=== PATIENT | male | born 1975 | race Caucasian/White ===

== ENCOUNTER 2017-07-09 17:55 | Emergency (ER) | END 2017-07-09 20:26 | disposition home or self-care (01) ==

== ENCOUNTER 2018-01-03 23:15 | Emergency (ER) | END 2018-01-04 01:15 | disposition left against medical advice (07) ==

== ENCOUNTER 2018-01-11 21:01 | Emergency (ER) | END 2018-01-12 00:05 | disposition home or self-care (01) ==

== ENCOUNTER 2018-05-29 10:38 | Inpatient (IN) | payer MEDICARE, BC ==
[~2018-05-29] VITALS: Ht 177.8 cm; Wt 95.3 kg
[~2018-05-29 10:38] MED LIST: BENZ2TAB7 PO; ESOM40CA PO; HALO10TA PO; HYDR-762 PO; LORA-444 PO; METO-336 PO; ONDA4TAB35 PO
[2018-05-29 10:45] VITALS: Ht 177.8 cm; Wt 95.3 kg
[2018-05-29] MEDS ORDERED: SOD CHLORIDE 0.9% 1,000 ML IV STA (10:50)
[2018-05-29] MEDS ORDERED: FLUMAZENIL 0.5 MG INJ IV ONE ×2 (11:00→12:30)
[2018-05-29] MEDS ORDERED: METO-407 PO (12:23)
[2018-05-29] MEDS ORDERED: QUET300T2 PO (12:23)
[2018-05-29] MEDS ORDERED: IBUP-1545 PO (12:24)
[2018-05-29] MEDS ORDERED: ZOLP10TA5 PO (12:24)
[2018-05-29] MEDS ORDERED: CLON0.2T5 PO (12:25)
[2018-05-29] MEDS ORDERED: ESOM40CA PO (12:25)
[2018-05-29] MEDS ORDERED: LORA1TAB PO (12:25)
[2018-05-29] MEDS ORDERED: LIPA1CAP2 PO (12:26)
[2018-05-29 12:35] VITALS: RESP 13
--- NOTE | 2018-05-29 14:03 | ERD ---
ER Documentation Chief Complaint Chief Complaint ACCIDENTAL OVERDOSE HPI This is a 43-year-old male here for overdose. Patient is extremely groggy and is hard to get a good history out of him but he does mumble that he took Ativan and Seroquel. He does not know when he took it or how much he took. The patient's been here in the past for accidental overdose. It is unclear if he is trying to hurt himself or not. ROS All systems reviewed and are negative except as per history of present illness. Medications Home Meds Reported Medications Moedgt-Bnmqprqs-Xvsbtkx* (Inder BROWN* 6,000) 6,000 L-19,000-30,000 Unit Capsule.dr, 1 CAP PO WITH MEALS, CAP 05/29/18 Lorazepam* (Lorazepam*) 1 Mg Tablet, 2 MG PO DAILY PRN for ANXIETY, #30 TAB 05/29/18 Clonidine Hcl* (Clonidine Hcl*) 0.2 Mg Tablet, 0.2 MG PO QHS, TAB 05/29/18 Esomeprazole Mag Trihydrate (Nexium) 40 Mg Capsule.dr, 40 MG PO AC BREAKFAST, #30 CAP 05/29/18 Zolpidem Tartrate* (Zolpidem Tartrate*) 10 Mg Tablet, 10 MG PO QHS PRN for INSOMNIA, #30 TAB 05/29/18 Ibuprofen* (Ibuprofen*) 800 Mg Tab, 800 MG PO Q6H PRN for PAIN, TAB 05/29/18 Quetiapine Fumarate* (Seroquel*) 300 Mg Tablet, 300 MG PO BID, TAB 05/29/18 Metoprolol Tartrate* (Lopressor*) 100 Mg Tablet, 200 MG PO BID, #120 TAB 05/29/18 Discontinued Reported Medications Benztropine Mesylate* (Benztropine Mesylate*) 2 Mg Tablet, 2 MG PO QPM, TAB 02/09/15 Esomeprazole Mag Trihydrate (Nexium) 40 Mg Capsule.dr, 40 MG PO DAILY, CAP 02/09/15 Metoprolol Succinate* (Toprol XL*) 100 Mg Tab.sr.24h, 100 MG PO DAILY, TAB 02/09/15 Lorazepam* (Ativan*) 2 Mg Tablet, 2 MG PO HS PRN for INSOMNIA, TAB 07/11/14 Haloperidol* (Haloperidol*) 10 Mg Tablet, 10 MG PO QHS, TAB 06/01/14 Discontinued Scripts Hydrocodone Bit-Acetaminophen* (Ranier*) 10-325 Mg Tablet, 1 TAB PO Q6 PRN for PAIN, #7 TAB Prov:DAISY AZEVEDO MD 09/12/15 Ondansetron Hcl* (Zofran* ODT) 4 mg -ODT Tab.disper, 4 MG PO Q6 PRN for NAUSEA AND/OR VOMITING, #30 TAB Prov:DAISY AZEVEDO MD 02/09/15 Allergies Allergies: Coded Allergies: Sulfa (Sulfonamide Antibiotics) (Unverified Allergy, Unknown, 01/04/18) iodine (Unverified Allergy, Unknown, 01/04/18) PMhx/Soc History of Surgery: Yes (APPENDECTOMY, FOOT SURGERY) Anesthesia Reaction: No Hx Neurological Disorder: No Hx Respiratory Disorders: No Hx Cardiac Disorders: No Hx Psychiatric Problems: Yes (Psychosis;Suicide Attempt;Pervasive Development D/O) Hx Miscellaneous Medical Probl: Yes (ANXIETY , asperger's sx) Hx Alcohol Use: Yes Hx Substance Use: Yes (MARiJUANA) Hx Tobacco Use: No Smoking Status: Never smoker FmHx Family History: No coronary disease Physical Exam Vitals Vital Signs Date Temp Pulse Resp B/P (MAP) Pulse Ox O2 O2 Flow FiO2 Time Delivery Rate 05/29/18 68 13 103/84 100 Room Air 12:35 (90) 05/29/18 97.6 70 11 118/81 100 10:45 (93) Physical Exam Const: Well-developed, well-nourished Head: Atraumatic, normocephalic Eyes: Normal Conjunctiva, PERRLA, EOMI, normal sclera, no nystagmus ENT: Normal External Ears, Nose and Mouth, moist mucus membranes. Neck: Full range of motion. No meningismus, no lymphadenopathy. Resp: Clear to auscultation bilaterally, no wheezing, rhonchi, rales Cardio: Regular rate and rhythm, no murmurs, S1 S2 present Abd: Soft, non tender x 4, non distended. Normal bowel sounds, no guarding or rebound, no pulsitile abdominal masses or bruits Skin: No petechiae or rashes, no ecchymosis , no maculopapular rash Back: No midline or flank tenderness Ext: No cyanosis, or edema, FROM x 4, normal inspection, neurovascularly intact x 4 Neur: Groggy and minimally arousable to answer a few questions and falls back asleep. Psych: Unable to obtain] Result Diagram: 05/29/18 1135 05/29/18 0930 Results 24 hrs Laboratory Tests Test 05/29/18 09:30 05/29/18 11:35 05/29/18 13:05 Sodium Level 145 mmol/L Potassium Level 3.9 mmol/L Chloride Level 108 mmol/L Carbon Dioxide Level 30 mmol/L Anion Gap 7 Blood Urea Nitrogen 10 mg/dl Creatinine 0.73 mg/dl Est Glomerular Filtrat > 60 mL/min Rate mL/min Glucose Level 109 mg/dl Calcium Level 8.9 mg/dl Total Bilirubin 0.2 mg/dl Direct Bilirubin 0.00 mg/dl Indirect Bilirubin 0.2 mg/dl Aspartate Amino 20 IU/L Transf (AST/SGOT) Alanine 16 IU/L Aminotransferase (ALT/SGPT) Alkaline Phosphatase 93 IU/L Total Protein 6.4 g/dl Albumin 3.4 g/dl Globulin 3.00 g/dl Albumin/Globulin Ratio 1.13 Salicylates Level < 1.0 mg/dl Acetaminophen Level < 10.0 ug/ml Ethyl Alcohol Level < 10.0 mg/dl White Blood Count 3.1 10^3/ul Red Blood Count 4.50 10^6/ul Hemoglobin 13.0 g/dl Hematocrit 39.1 % Mean Corpuscular Volume 86.9 fl Mean Corpuscular Hemoglobin 28.9 pg Mean Corpuscular 33.2 g/dl Hemoglobin Concent Red Cell Distribution Width 12.5 % Platelet Count 280 10^3/UL Mean Platelet Volume 9.1 fl Immature Granulocytes % 0.300 % Neutrophils % 56.6 % Lymphocytes % 28.8 % Monocytes % 10.5 % Eosinophils % 3.2 % Basophils % 0.6 % Nucleated Red Blood Cells % 0.0 /100WBC Immature Granulocytes # 0.010 10^3/ul Neutrophils # 1.8 10^3/ul Lymphocytes # 0.9 10^3/ul Monocytes # 0.3 10^3/ul Eosinophils # 0.1 10^3/ul Basophils # 0.0 10^3/ul Nucleated Red Blood Cells # 0.0 10^3/ul Urine Opiates Screen Negative Urine Barbiturates Negative Urine Amphetamines Screen Negative Urine Benzodiazepines Screen Negative Urine Cocaine Screen Negative Urine Cannabinoids Negative Current Medications Medications Dose Sig/Umberto Start Time Status Last (Trade) Ordered Route PRN Stop Time Admin Dose Reason Admin Flumazenil 0.5 mg ONCE ONCE 05/29/18 DC 05/29/18 (Romazicon) IV 11:00 11:09 05/29/18 11:01 Sodium 1,000 ml @ Q1H STAT 05/29/18 DC 05/29/18 Chloride 1,000 mls/hr IV 10:50 11:09 05/29/18 11:49 Flumazenil 0.5 mg ONCE ONCE 05/29/18 DC 05/29/18 (Romazicon) IV 12:30 12:29 05/29/18 12:31 Procedures/MDM Ordering MD: JEREMY LEBRON DO Location: E/R Room/Bed: PROCEDURE: CT head CLINICAL INDICATION: Altered mental status TECHNIQUE: Contiguous 2.5 mm axial images were obtained from the vertex to the skull base. No intravenous contrast was administered. The calculated dose length product (DLP) = 634.23 mGy-cm. The CTDlvol = 30.77 mGy. One or more of the following dose reduction techniques were used: Automated exposure control, adjustment of the mA and or KV according to patient size, or use of iterative reconstruction technique. DICOM images are available. COMPARISON: 02/10/2018 FINDINGS: There is no evidence of acute intracranial hemorrhage or acute territorial infarct. No mass or mass effect is seen on this noncontrast study. The ventricles and cisterns are normal in size and configuration. The subramanian-white matter differentiation is within normal limits. The visualized paranasal sinuses are normally aerated. The bony calvarium is unremarkable IMPRESSION: Unremarkable unenhanced CT of the brain No interval change RPTAT: HH .Lucas Feliz MD, Date Time Electronically viewed and signed by .Lucas Feliz MD, on 05/29/2018 11:42 .W/ CC: JEREMY LEBRON DO [id number] EKG: Rate/Rhythm: Normal Sinus Rhythm,NL intervals QRS, ST, QT: NORMAL OH, QRS, QT] Impression: NORMAL EKG Patient was given flumazenil 0.5 mg IV x2 in order to reverse the Ativan he says he took however there was minimal response. The patient was observed here and has remained in basically the same condition. He is in no acute distress but he is extremely groggy and unclear as to what exactly took as he has a large bag of pills, for multiple medical conditions that he states are from his family. Because we do not know what he took or how much of it or when we will admit for observation then once improved will need psych eval Departure Diagnosis: Primary Impression: Accidental overdose Encounter type: initial encounter Qualified Codes: T50.901A - Poisoning by unspecified drugs, medicaments and biological substances, accidental (unintentional), initial encounter Condition: Stable JEREMY LEBRON DO May 29, 2018 14:03
[2018-05-29] MEDS ORDERED: SOD CHLORIDE 0.9% 1,000 ML IV SCH ×2 (14:16→15:28)
[2018-05-29] MEDS ORDERED: ONDANSETRON 4 MG INJ IV PRN ×2 (14:30→15:30)
[2018-05-29] MEDS ORDERED: ACETAMINOPHEN 325 MG TAB PO PRN ×2 (14:30→15:30)
[2018-05-29 15:27] VITALS: PULSE 74
--- NOTE | 2018-05-29 15:28 | HP ---
Date/Time of Note Date/Time of Note DATE: 05/29/18 TIME: 15:28 Assessment/Plan VTE Prophylaxis Pharmacological prophylaxis: other Pharm contraindication: other Lines/Catheters IV C[facility]ter Type (from [facility]): Peripheral IV Assessment/Plan Hospital Course 43-year-old male with comorbidities including anxiety disorder, psychosis, and substance abuse who accidentally overdosed on his medications and is being admitted to inpatient setting for further treatment and evaluation. 1. Accidental overdose. -Urine drug screen negative for any benzodiazepines. -Patient will be monitored on telemetry floor suspecting that he might have overdosed on Seroquel. -Obtain 12-lead EKG to evaluate QT interval and any ST-T changes. -Monitor respiratory status. -IV hydration. -Psychiatric evaluation. 2. Anxiety disorder. -Hold all anxiolytics at this time given the patient's current condition. -Psychiatric evaluation. 3. History of psychosis. -Denies any hallucinations. -Hold Seroquel at this time. Plan: The patient will be admitted to inpatient telemetry floor. The patient will be started on a regular diet, if the patient is alert enough to have oral intake. The patient will be started on DVT prophylaxis. The patient will remain a full code. Activities will be as tolerated . The rest of the patient's management will be based on the clinical course, inputs from consultants, and the results of diagnostic studies. Based on the patient's clinical presentation, he most probably requires at least 2 midnights' stay for further management and evaluation of his clinical presentation. The patient was seen in collaboration with Dr. Farris. Result Diagram: 05/29/18 1135 05/29/18 0930 Results 24hrs Laboratory Tests Test 05/29/18 09:30 05/29/18 11:35 05/29/18 13:05 Sodium Level 145 H Potassium Level 3.9 Chloride Level 108 Carbon Dioxide Level 30 Anion Gap 7 Blood Urea Nitrogen 10 Creatinine 0.73 Est Glomerular Filtrat > 60 Rate mL/min Glucose Level 109 Calcium Level 8.9 Total Bilirubin 0.2 Direct Bilirubin 0.00 Indirect Bilirubin 0.2 Aspartate Amino 20 Transf (AST/SGOT) Alanine 16 Aminotransferase (ALT/SGPT) Alkaline Phosphatase 93 Total Protein 6.4 Albumin 3.4 Globulin 3.00 Albumin/Globulin Ratio 1.13 Salicylates Level < 1.0 L Acetaminophen Level < 10.0 L Ethyl Alcohol Level < 10.0 H White Blood Count 3.1 #L Red Blood Count 4.50 L Hemoglobin 13.0 L Hematocrit 39.1 L Mean Corpuscular Volume 86.9 Mean Corpuscular Hemoglobin 28.9 L Mean Corpuscular 33.2 Hemoglobin Concent Red Cell Distribution Width 12.5 Platelet Count 280 Mean Platelet Volume 9.1 Immature Granulocytes % 0.300 Neutrophils % 56.6 Lymphocytes % 28.8 Monocytes % 10.5 Eosinophils % 3.2 Basophils % 0.6 Nucleated Red Blood Cells % 0.0 Immature Granulocytes # 0.010 Neutrophils # 1.8 Lymphocytes # 0.9 Monocytes # 0.3 Eosinophils # 0.1 Basophils # 0.0 Nucleated Red Blood Cells # 0.0 Urine Opiates Screen Negative Urine Barbiturates Negative Urine Amphetamines Screen Negative Urine Benzodiazepines Screen Negative Urine Cocaine Screen Negative Urine Cannabinoids Negative HPI/ROS Admit Date/Time Admit Date/Time May 29, 2018 at 14:17 Hx of Present Illness Reason for admission: Brought in by paramedics because the family called paramedics for accidental overdose of medications. This is a 43-year-old male with past medical history of anxiety disorder, psychotic disorder, and substance abuse. The patient's family called 911 suspecting that the patient overdosed with Seroquel and Ativan. As per the paramedics notes, the patient was oriented although lethargic and was ambulatory at home. Upon inquiring about what medications that he had overdosed on, the patient was unable to tell me what medications he took. However, as per the ER physician, the patient verbalized that he took Ativan and Seroquel. The patient denied any suicidal ideation although he verbalized that he is confused and has been unsteady and dropping things at home. The patient denied any chest pain or dyspnea. He verbalized nausea and vomiting although no vomiting has been documented in the ER. The patient's urine drug screen in the emergency room was negative. The patient was treated with 2 doses of flumazenil and IV hydration in the emergency room. ROS Subjective hx not possible: other Constitutional: no complaints Eyes: no complaints ENT: no complaints Respiratory: no complaints Cardiovascular: no complaints Gastrointestinal: no complaints Genitourinary: no complaints Skin: no complaints Neurologic: confusion Endocrine: no complaints Lymphatic: no complaints Psychological: anxiety, depression Immunologic: no complaints PMH/Family/Social Past Medical History 1. Anxiety disorder. 2. Psychosis. 3. Substance abuse. Medications Current Medications Sodium Chloride 1,000 ml @ 80 mls/hr [id number] IV ; Start 05/29/18 at 14:16; Stop 05/30/18 at 02:45 Ondansetron HCl (Zofran Inj) 4 mg ER BRIDGE PRN IV NAUSEA AND/OR VOMITING; Start 05/29/18 at 14:30; Stop 05/30/18 at 14:29 Acetaminophen (Tylenol Tab) 650 mg ER BRIDGE PRN PO MILD PAIN(1-3)OR ELEVATED TEMP; Start 05/29/18 at 14:30; Stop 05/30/18 at 14:29 Coded Allergies: Sulfa (Sulfonamide Antibiotics) (Unverified Allergy, Unknown, 01/04/18) iodine (Unverified Allergy, Unknown, 01/04/18) Past Surgical History 1. Appendectomy Social History The patient lives at home with family. Alcohol Use: sober Smoking Status: Never smoker Drug Use: other (Prior drug abuse.) Exam/Review of Systems Vital Signs Vitals Vital Signs Date Temp Pulse Resp B/P (MAP) Pulse Ox O2 O2 Flow FiO2 Time Delivery Rate 05/29/18 68 13 103/84 100 Room Air 12:35 (90) 05/29/18 97.6 10:45 Exam Exam General: Adequately build 43 year-old male lying in bed in no apparent distress. HEENT: Normocephalic, atraumatic. Eyes: Anicteric sclerae, conjunctivae clear. Pupils equal and reactive to light. ENT: Nasal septum midline, oral mucosa is dry. Neck supple, no JVD noticed. Respiratory: Bilaterally clear breath sounds. No use of accessory muscles of respiration. No adventitious breath sounds. Cardiovascular: S1, S2 heard. Regular rate and rhythm. Abdomen: Soft, nontender, and nondistended. Bowel sounds positive in all 4 quadrants. Genitourinary: Deferred. Extremities: No cyanosis, no clubbing, no edema. Peripheral pulses palpable. Neurologic: Patient is somnolent. Opens his eyes to verbal commands. Moves all 4 extremities. Answers appropriately with a slurred speech. Oriented x4. Additional Comments Brain CT IMPRESSION: Unremarkable unenhanced CT of the brain No interval change. CXR IMPRESSION: 1. No evidence of acute cardiopulmonary disease. ATA JAMES NP May 29, 2018 15:28
[2018-05-29] MEDS ORDERED: NACL 0.9% 3 ML SYG IV SCH (15:30)
[2018-05-29 15:54] VITALS: BP 146/98; PULSE 64
[2018-05-29 16:12] VITALS: PULSE 63
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
--- NOTE | 2018-05-29 19:00 | NUR ---
WANTS TO LEAVE AMA Patient pulled IV and dressed in personal clothes. States he wants to leave AMA and willing to wait for MD before leaving. Speaking with supervisor sandblaster Reyna in room. Will endorse to night assistant.
--- NOTE | 2018-05-29 19:05 | NUR ---
INFORMED MD Informed hospitalist Dr. Hussein. States its ok for patient to leave AMA but recommends patient to stay. Will endorse to overnight cashier.
--- NOTE | 2018-05-29 20:15 | NUR ---
ALONSO. PATIENT WENT HOME AGAINST MEDICAL ADVICE. DAY HACKSAW INSPECTOR MECCA AYON CAME TO TALK WITH PATIENT BUT STILL FAILED TO CONVINCE PATIENT TO STAY. PATIENT ORIENTED X 3 BUT STILL SLUGGISH WHEN WALKING. PRIOR TO LEAVING HOSPITAL, PATIENT CLAIMS TO LOSE HIS [place] ID. IF FOUND, TO CALL HIS MOBILE: [phone]; HOME PHONE: [phone]; EMAIL [email or web address]
--- NOTE | 2018-05-30 07:10 | DS ---
Date/Time of Note Date/Time of Note DATE: 05/30/18 TIME: 07:10 Discharge Summary Admission/Discharge Info Admit Date/Time May 29, 2018 at 14:17 Discharge Date/Time May 29, 2018 at 20:29 Discharge Diagnosis 1. Accidental overdose of antipsychotics. 2. Schizoaffective disorder. Patient Condition: Guarded Consults Christina Spear, VERA, Pscychiatry. Procedures Brain CT IMPRESSION: Unremarkable unenhanced CT of the brain No interval change CXR IMPRESSION: 1. No evidence of acute cardiopulmonary disease. Hx of Present Illness Reason for admission: Brought in by paramedics because the family called paramedics for accidental overdose of medications. This is a 43-year-old male with past medical history of anxiety disorder, psychotic disorder, and substance abuse. The patient's family called 911 suspecting that the patient overdosed with Seroquel and Ativan. As per the paramedics notes, the patient was oriented although lethargic and was ambulatory at home. Upon inquiring about what medications that he had overdosed on, the patient was unable to tell me what medications he took. However, as per the ER physician, the patient verbalized that he took Ativan and Seroquel. The patient denied any suicidal ideation although he verbalized that he is confused and has been unsteady and dropping things at home. The patient denied any chest pain or dyspnea. He verbalized nausea and vomiting although no vomiting has been do cumented in the ER. The patient's urine drug screen in the emergency room was negative. The patient was treated with 2 doses of flumazenil and IV hydration in the emergency room. Hospital Course The patient was admitted to inpatient telemetry floor. Although the ER mentioned that the patient had overdosed on Ativan, the patient's urine drug screen was negative for any benzodiazepines. Therefore, the patient was monitored for suspected overdose on Seroquel. The patient's 12-lead EKG was showing no prolonged QT interval. The patient's telemetry rhythm was monitored closely for any QT prolongation. The patient's respiratory status was monitored closely. The patient was provided with IV fluids. A psych consult was ordered. Psychiatry saw and evaluated the patient and recommended no 5150 hold. The patient's antipsychotics were put on hold because of the suspected overdose. Meanwhile, around the 0, the patient conveyed to the nurse that he wanted to leave the hospital. The patient was informed about the consequences of leaving the hospital AGAINST MEDICAL ADVICE including the possibility of . Never theless, the patient left the hospital AGAINST MEDICAL ADVICE. No discharge planning could be done since the patient left the hospital AGAINST MEDICAL ADVICE. At this time I would like to thank Christina Spear NP for seeing the patient and providing clinical recommendations. The patient was seen in collaboration with Dr. Farris. Home Meds Reported Medications Hwfdkk-Ivuezvrj-Kutnicj* (Creon DR* 6,000) 6,000 L-19,000-30,000 Unit Capsule.dr, 1 CAP PO WITH MEALS, CAP 05/29/18 Lorazepam* (Lorazepam*) 1 Mg Tablet, 2 MG PO DAILY PRN for ANXIETY, #30 TAB 05/29/18 Clonidine Hcl* (Clonidine Hcl*) 0.2 Mg Tablet, 0.2 MG PO QHS, TAB 05/29/18 Esomeprazole Mag Trihydrate (Nexium) 40 Mg Capsule.dr, 40 MG PO AC BREAKFAST, #30 CAP 05/29/18 Zolpidem Tartrate* (Zolpidem Tartrate*) 10 Mg Tablet, 10 MG PO QHS PRN for INSOMNIA, #30 TAB 05/29/18 Ibuprofen* (Ibuprofen*) 800 Mg Tab, 800 MG PO Q6H PRN for PAIN, TAB 05/29/18 Quetiapine Fumarate* (Seroquel*) 300 Mg Tablet, 300 MG PO BID, TAB 05/29/18 Metoprolol Tartrate* (Lopressor*) 100 Mg Tablet, 200 MG PO BID, #120 TAB 05/29/18 Discontinued Reported Medications Benztropine Mesylate* (Benztropine Mesylate*) 2 Mg Tablet, 2 MG PO QPM, TAB 02/09/15 Esomeprazole Mag Trihydrate (Nexium) 40 Mg Capsule.dr, 40 MG PO DAILY, CAP 02/09/15 Metoprolol Succinate* (Toprol XL*) 100 Mg Tab.sr.24h, 100 MG PO DAILY, TAB 02/09/15 Lorazepam* (Ativan*) 2 Mg Tablet, 2 MG PO HS PRN for INSOMNIA, TAB 07/11/14 Haloperidol* (Haloperidol*) 10 Mg Tablet, 10 MG PO QHS, TAB 06/01/14 Discontinued Scripts Hydrocodone Bit-Acetaminophen* (Greeley*) 10-325 Mg Tablet, 1 TAB PO Q6 PRN for PAIN, #7 TAB Prov:DAISY AZEVEDO MD 09/12/15 Ondansetron Hcl* (Zofran* ODT) 4 mg -ODT Tab.disper, 4 MG PO Q6 PRN for NAUSEA AND/OR VOMITING, #30 TAB Prov:DAISY AZEVEDO MD 02/09/15 Follow-up Plan Patient left AGAINST MEDICAL ADVICE. Primary Care Provider Not On Staff Doctor Time spent on discharge: < 30 minutes Pending Labs Laboratory Tests Test 05/29/18 09:30 05/29/18 11:35 05/29/18 13:05 05/29/18 16:11 Sodium Level 145 mmol/L (135-144 ) Potassium 3.9 Level mmol/L (3.5-5.1 ) Chloride Level 108 mmol/L (97-110) Carbon Dioxide 30 Level mmol/L (21-31) Anion Gap 7 (5-13) Blood Urea 10 mg/dl (7-20) Nitrogen Creatinine 0.73 mg/dl (0.61-1.2 4) Est Glomerular > 60 Filtrat mL/min (>60) Rate mL/min Glucose Level 109 mg/dl (70-220) Calcium Level 8.9 mg/dl (8.4-10.2 ) Total 0.2 Bilirubin mg/dl (0.2-1.3) Direct 0.00 Bilirubin mg/dl (0.00-0.2 0) Indirect 0.2 Bilirubin mg/dl (0-1.1) Aspartate Amino 20 IU/L (15-46) Transf (AST/SGO T) Alanine 16 IU/L (13-69) Aminotransferas e (ALT/SGPT) Alkaline 93 Phosphatase IU/L (42-121) Total Protein 6.4 g/dl (6.1-8.1) Albumin 3.4 g/dl (3.3-4.9) Globulin 3.00 g/dl (1.3-3.2) Albumin/Globuli 1.13 n Ratio Salicylates < 1.0 Level mg/dl (5.0-30.0 ) Acetaminophen < 10.0 Level ug/ml (10.0-30. 0) Ethyl Alcohol < 10.0 Level mg/dl (0-0) White Blood 3.1 Count 10^3/ul (4.8-1 0.8) Red Blood 4.50 Count 10^6/ul (4.70- 6.10) Hemoglobin 13.0 g/dl (14.0-18. 0) Hematocrit 39.1 % (42.0-52.0) Mean 86.9 Corpuscular fl (82.0-101.0 Volume ) Mean 28.9 Corpuscular pg (29.0-33.0) Hemoglobin Mean 33.2 Corpuscular g/dl (32.0-37. Hemoglobin Conc 0) ent Red Cell 12.5 Distribution % (11.5-14.5) Width Platelet Count 280 10^3/UL (140-4 15) Mean Platelet 9.1 Volume fl (7.4-10.4) Immature 0.300 Granulocytes % % (0.001-0.429 ) Neutrophils % 56.6 % (39.0-77.0) Lymphocytes % 28.8 % (15.0-51.0) Monocytes % 10.5 % (0.0-11.0) Eosinophils % 3.2 % (0.0-7.0) Basophils % 0.6 % (0.0-2.0) Nucleated Red 0.0 Blood Cells % /100WBC (0.0-0 .0) Immature 0.010 Granulocytes # 10^3/ul (0.0-0 .031) Neutrophils # 1.8 10^3/ul (1.6-7 .5) Lymphocytes # 0.9 10^3/ul (0.8-2 .9) Monocytes # 0.3 10^3/ul (0.3-0 .9) Eosinophils # 0.1 10^3/ul (0.0-0 .5) Basophils # 0.0 10^3/ul (0.0-0 .1) Nucleated Red 0.0 Blood Cells # 10^3/ul (0.0-0 .0) Urine Opiates Negative (NEGA Screen TIVE) Urine Negative (NEGA Barbiturates TIVE) Urine Negative (NEGA Amphetamines TIVE) Screen Urine Negative (NEGA Benzodiazepines TIVE) Screen Urine Cocaine Negative (NEGA Screen TIVE) Urine Negative (NEGA Cannabinoids TIVE) Hemoglobin A1c 5.2 % (0-5.9) Test 05/29/18 16:12 Thyroid 3.890 Stimulating MIU/L (0.465-4. Hormone (TSH) 680) Free Thyroxine 0.87 ng/dl (0.64-1.7 9) ATA JAMES NP May 30, 2018 07:10
== END 2018-05-29 20:29 | disposition left against medical advice (07) | DRG 918 ==
LOC: E/R 10:38 → 6WM 14:17
PROVIDERS: ADMIT Internal Medicine; ATTEND Internal Medicine
DX: T43.501A Poisoning by unspecified antipsychotics and neuroleptics, accidental (unintentional), initial encounter (principal); F41.9 Anxiety disorder, unspecified; F25.9 Schizoaffective disorder, unspecified
CPT/HCPCS: 36415; 70450; 71045; 80053; 80307; 83036; 84439; 84443; 85025; 93005; 96374; 96376; J7030

== ENCOUNTER 2018-05-30 12:43 | Emergency (ER) | END 2018-05-31 05:37 ==

== ENCOUNTER 2018-07-03 06:39 | Emergency (ER) | payer MEDICARE, BC ==
[~2018-07-03] VITALS: Ht 167.6 cm; Wt 83.8 kg
[~2018-07-03 06:39] MED LIST changes: -BENZ2TAB7 PO; +CLON0.2T5 PO; -HALO10TA PO; -HYDR-762 PO; +IBUP-1545 PO; +LIPA1CAP2 PO; -LORA-444 PO; +LORA1TAB PO; -METO-336 PO; +METO-407 PO; -ONDA4TAB35 PO; +QUET300T2 PO; +ZOLP10TA5 PO
[2018-07-03 06:41] VITALS: BP 126/84; PULSE 65; RESP 18; Ht 167.6 cm; Wt 83.8 kg
[2018-07-03] MEDS ORDERED: ONDANSETRON (ODT) 4 MG TAB ODT STA (07:13)
[2018-07-03] MEDS: ACETAMINOPHEN 500 MG TAB PO STA ×2 (07:36→07:43)
--- NOTE | 2018-07-03 08:12 | ERD ---
ER Documentation Chief Complaint Chief Complaint cold symptoms x4 weeks HPI 43-year-old male presents to the emergency department complaining of a cough cold and vomiting. Patient states that for the last 4 weeks, he has been having the above symptoms. He states "I cannot keep anything down." As per his old records, has been evaluated at multiple other emergency departments. He is also on chronic anxiety medication as well as occasional pain medications according to his cures report. Patient states that the only way to help him is with an IV, that he will "need to be restrained for" as well as narcotic pain medication. Patient states he has a cough nonproductive of sputum without shortness of breath or chest pain. He reports no localizing abdominal pain. ROS All systems reviewed and are negative except as per history of present illness. Medications Home Meds Reported Medications Kvefyz-Qxdoxenz-Xkeemdp* (Inder BROWN* 6,000) 6,000 L-19,000-30,000 Unit Capsule.dr, 1 CAP PO WITH MEALS, CAP 05/29/18 Lorazepam* (Lorazepam*) 1 Mg Tablet, 2 MG PO DAILY PRN for ANXIETY, #30 TAB 05/29/18 Clonidine Hcl* (Clonidine Hcl*) 0.2 Mg Tablet, 0.2 MG PO QHS, TAB 05/29/18 Esomeprazole Mag Trihydrate (Nexium) 40 Mg Capsule.dr, 40 MG PO AC BREAKFAST, #30 CAP 05/29/18 Zolpidem Tartrate* (Zolpidem Tartrate*) 10 Mg Tablet, 10 MG PO QHS PRN for INSOMNIA, #30 TAB 05/29/18 Ibuprofen* (Ibuprofen*) 800 Mg Tab, 800 MG PO Q6H PRN for PAIN, TAB 05/29/18 Quetiapine Fumarate* (Seroquel*) 300 Mg Tablet, 300 MG PO BID, TAB 05/29/18 Metoprolol Tartrate* (Lopressor*) 100 Mg Tablet, 200 MG PO BID, #120 TAB 05/29/18 Allergies Allergies: Coded Allergies: Sulfa (Sulfonamide Antibiotics) (Unverified Allergy, Unknown, 01/04/18) iodine (Unverified Allergy, Unknown, 01/04/18) PMhx/Soc History of Surgery: Yes (APPENDECTOMY, FOOT SURGERY) Anesthesia Reaction: No Hx Neurological Disorder: No Hx Respiratory Disorders: No Hx Cardiac Disorders: No Hx Psychiatric Problems: Yes (anxiety, psychosis, substance abuse) Hx Miscellaneous Medical Probl: Yes (ANXIETY , asperger's sx) Hx Alcohol Use: Yes Hx Substance Use: Yes Hx Tobacco Use: No Smoking Status: Never smoker FmHx Noncontributory for chief complaint. Physical Exam Vitals Vital Signs Date Temp Pulse Resp B/P (MAP) Pulse Ox O2 O2 Flow FiO2 Time Delivery Rate 07/03/18 98.0 65 18 126/84 96 06:41 (98) Physical Exam GENERAL: The patient is well developed and appropriate for usual state of health in no apparent distress HEENT: Pupils equal, round, and reactive to light. EOMI. There is no scleral icterus. NECK: C-spine is soft and supple, there is no meningismus. There is no cervical lymphadenopathy. LUNGS: Clear to auscultation bilaterally. There are no rales, wheezes or rhonchi. HEART: Regular rate and rhythm, no murmurs, clicks, rubs or gallops. ABDOMEN: Soft, non-tender, non-distended. There are bowel sounds in all four quadrants. No rebound or guarding. EXTREMITIES: There is no peripheral cyanosis or edema. No focal swelling or erythema. NEURO: The patient moves all four extremities with 5/5 strength. Cranial nerves II - XII are intact. Normal gait. Alert and oriented SKIN: There is no apparent rash or petechiae. HEME/LYMPHATIC: There is no evidence of excessive bruising or lymphedema. PSYCHIATRIC: Patient appears to be anxious. He has a somewhat bizarre affect and demeanor. Results 24 hrs Current Medications Medications Dose Sig/Umberto Start Time Status Last (Trade) Ordered Route PRN Stop Time Admin Dose Reason Admin Ondansetron 4 mg ONCE STAT 07/03/18 DC 07/03/18 HCl (Zofran ODT 07:13 07:27 Odt) 07/03/18 07:14 1,000 mg ONCE STAT 07/03/18 DC Acetaminophen PO 07:30 (Tylenol 07/03/18 07:31 Tab) Procedures/MDM Patient was taken to a room, seen and examined. Patient was offered IV hydration as well as antiemetics as well as blood testing to check for dehydration. Patient stated that the only way this could happen is that he required restraints. I told him that I did not feel it was appropriate to restrain him for an IV. He also stated the only thing that he would make him better with his IV pain medication, which I was uncomfortable with given his sedative hypnotic use Especially in light of not having significant discomfort that I felt required narcotics. After declining IV narcotics and restraints, patient states that I was "not doing anything for him" and declined any further care. Medical decision makin-year-old male presents the emergency department with what appears to be a chronic nonspecific issue. His clinical examination is not consistent with dehydration, pneumonia or any other high-risk issues. Although being offered evaluation, he is declining this requesting to be tied down for an IV and IV narcotics. This seems to be inappropriate for the patient's clinical presentation. After medical screening examination at this time demonstrates no evidence of other high-risk emergent medical condition, I referred him back to his primary care doctor. Departure Diagnosis: Primary Impression: Abdominal pain Condition: Stable Patient Instructions: Abdominal Pain Additional Instructions: Please speak with your doctor for further care SOTO SALMERON Jul 03, 2018 08:12
== END 2018-07-03 08:28 | disposition home or self-care (01) ==
LOC: FTE 06:39 → E/R 08:28
DX: R10.9 Unspecified abdominal pain (principal); R11.10 Vomiting, unspecified
CPT/HCPCS: 99283

== ENCOUNTER 2018-07-14 23:43 | Emergency (ER) | payer MEDICARE, BC ==
[~2018-07-14] VITALS: Wt 84.7 kg
[2018-07-15] MEDS ORDERED: ONDANSETRON 4 MG INJ IM STA (01:41)
[2018-07-15] MEDS ORDERED: LORAZEPAM 2 MG INJ IM ONE (02:00)
[2018-07-15] MEDS ORDERED: SOD CHLORIDE 0.9% 1,000 ML IV STA (02:31)
[2018-07-15] MEDS ORDERED: KETOROLAC 30 MG INJ IV STA (03:13)
[2018-07-15] MEDS ORDERED: BENZ-6 PO (04:16)
[2018-07-15] MEDS ORDERED: ONDA4TAB14 PO (04:16)
[2018-07-15] MEDS ORDERED: AZIT250T PO (04:16)
[2018-07-15 04:32] VITALS: BP 150/77; PULSE 75; RESP 19
--- NOTE | 2018-07-15 04:35 | ERD ---
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 Patient reports that he has not taking any medications that has helped. States that he is tried NyQuil and Advil. Reports that usually rec eiving IV fluids, helps with the symptoms. States that he feels weak, has body aches. Ports that he is also had a few episodes of nonbilious nonbloody vomiting. Denies any diarrhea, chest pain, shortness of breath, constipation. ROS All systems reviewed and are negative except as per history of present illness. Medications Home Meds Active Scripts Ondansetron (Ondansetron Odt) 4 Mg Tab.rapdis, 4 MG PO Q6H PRN for NAUSEA AND/OR VOMITING, #10 TAB Prov:YAKELIN CALERO PA-C 07/15/18 Benzonatate* (Tessalon Perle*) 100 Mg Capsule, 100 MG PO Q8H PRN for COUGH, #20 CAP Prov:YAKELIN CALERO PA-C 07/15/18 Azithromycin* (Zithromax*) 250 Mg Tablet, 250 MG PO .ZPACK DIRECTED, #6 TAB TAKE 500 MG (2 TABS) THE FIRST DAY THEN 250 MG (1 TAB) DAYS 2-5 Prov:YAKELIN CALERO PA-C 07/15/18 Reported Medications Rfizht-Gmdlpuox-Lmhexkf* (Inder BROWN* 6,000) 6,000 L-19,000-30,000 Unit Capsule.d r, 1 CAP PO WITH MEALS, CAP 05/29/18 Lorazepam* (Lorazepam*) 1 Mg Tablet, 2 MG PO DAILY PRN for ANXIETY, #30 TAB 05/29/18 Clonidine Hcl* (Clonidine Hcl*) 0.2 Mg Tablet, 0.2 MG PO QHS, TAB 05/29/18 Esomeprazole Mag Trihydrate (Nexium) 40 Mg Capsule.dr, 40 MG PO AC BREAKFAST, #30 CAP 05/29/18 Zolpidem Tartrate* (Zolpidem Tartrate*) 10 Mg Tablet, 10 MG PO QHS PRN for INSOMNIA, #30 TAB 05/29/18 Ibuprofen* (Ibuprofen*) 800 Mg Tab, 800 MG PO Q6H PRN for PAIN, TAB 05/29/18 Quetiapine Fumarate* (Seroquel*) 300 Mg Tablet, 300 MG PO BID, TAB 05/29/18 Metoprolol Tartrate* (Lopressor*) 100 Mg Tablet, 200 MG PO BID, #120 TAB 05/29/18 Allergies Allergies: Coded Allergies: Sulfa (Sulfonamide Antibiotics) (Unverified Allergy, Unknown, 01/04/18) iodine (Unverified Allergy, Unknown, 01/04/18) PMhx/Soc Medical and Surgical Hx: pt denies Medical Hx History of Surgery: Yes (APPENDECTOMY, FOOT SURGERY) Anesthesia Reaction: No Hx Neurological Disorder: No Hx Respiratory Disorders: No Hx Cardiac Disorders: No Hx Psychiatric Problems: Yes (anxiety, psychosis, substance abuse) Hx Miscellaneous Medical Probl: Yes (ANXIETY , asperger's sx) Hx Alcohol Use: Yes Hx Substance Use: Yes Hx Tobacco Use: No Smoking Status: Never smoker FmHx Family History: No diabetes, No coronary disease Physical Exam Vitals Vital Signs Date Temp Pulse Resp B/P (MAP) Pulse Ox O2 O2 Flow FiO2 Time Delivery Rate 07/14/18 98.1 77 19 145/91 100 23:45 (109) Physical Exam Const: Ezu-izo-vaxntkaqo, well-nourished. In no acute distress. Head: Atraumatic, normocephalic Eyes: Normal Conjunctiva without injection. No purulent discharge. PERRL. EOMI ENT: Normal external ear. Ear canal without erythema. Tympanic membrane pearly subramanian without effusion or bulging. Nasal canal clear with normal turbinates. Moist oropharynx without tonsillar exudates. Non-erythematous pharynx. Uvula midline. No drooling. No trismus. Neck: Full range of motion. No meningismus. No cervical lymphadenopathy. Resp: Clear to auscultation bilaterally. No wheezing, rhonchi, rales, or crackles. No accessory muscle use. No retractions. Cardio: Regular rate and rhythm. No murmurs, rubs or gallops. Abd: Soft, non tender, non distended. Normal bowel sounds. No palpable masses. No rebound tenderness. No guarding. Skin: No petechiae or rashes Back: No midline tenderness. No CVA tenderness. Ext: No cyanosis, or edema. Neur: Awake and alert. Psych: Normal Mood and Affect Result Diagram: 07/15/1825607/15/18256 Results 24 hrs Laboratory Tests Test 07/15/18 02:57 White Blood Count 7.1 10^3/ul Red Blood Count 5.26 10^6/ul Hemoglobin 15.3 g/dl Hematocrit 44.8 % Mean Corpuscular Volume 85.2 fl Mean Corpuscular Hemoglobin 29.1 pg Mean Corpuscular Hemoglobin Concent 34.2 g/dl Red Cell Distribution Width 12.7 % Platelet Count 387 10^3/UL Mean Platelet Volume 9.2 fl Immature Granulocytes % 0.100 % Neutrophils % 61.9 % Lymphocytes % 27.7 % Monocytes % 8.8 % Eosinophils % 1.1 % Basophils % 0.4 % Nucleated Red Blood Cells % 0.0 /100WBC Immature Granulocytes # 0.010 10^3/ul Neutrophils # 4.4 10^3/ul Lymphocytes # 2.0 10^3/ul Monocytes # 0.6 10^3/ul Eosinophils # 0.1 10^3/ul Basophils # 0.0 10^3/ul Nucleated Red Blood Cells # 0.0 10^3/ul Sodium Level 141 mmol/L Potassium Level 3.4 mmol/L Chloride Level 102 mmol/L Carbon Dioxide Level 26 mmol/L Anion Gap 13 Blood Urea Nitrogen 12 mg/dl Creatinine 0.84 mg/dl Est Glomerular Filtrat Rate mL/min > 60 mL/min Glucose Level 108 mg/dl Calcium Level 10.5 mg/dl Total Bilirubin 0.4 mg/dl Direct Bilirubin 0.00 mg/dl Indirect Bilirubin 0.4 mg/dl Aspartate Amino Transf (AST/SGOT) 25 IU/L Alanine Aminotransferase (ALT/SGPT) 18 IU/L Alkaline Phosphatase 154 IU/L Total Protein 8.7 g/dl Albumin 4.8 g/dl Globulin 3.90 g/dl Albumin/Globulin Ratio 1.23 Lipase 205 U/L Monoscreen Negative Current Medications Medications Dose Sig/Umberto Start Time Status Last (Trade) Ordered Route PRN Stop Time Admin Dose Reason Admin Lorazepam 1 mg ONCE ONCE 07/15/18 DC 07/15/18 (Ativan) IM 02:00 01:52 07/15/18 02:01 Ondansetron 4 mg ONCE STAT 07/15/18 DC 07/15/18 HCl (Zofran IM 01:41 01:52 Inj) 07/15/18 01:42 Sodium 1,000 ml @ Q1H STAT 07/15/18 DC 07/15/18 Chloride 1,000 mls/hr IV 02:31 02:59 07/15/18 03:30 Ketorolac 30 mg ONCE STAT 07/15/18 DC 07/15/18 Tromethamine IV 03:13 03:16 (Toradol) 07/15/18 03:14 Procedures/MDM 43-year-old male patient with a past medical history of Asperger's syndrome, chronic anxiety presents to ED complaining of cough, fever, flank symptoms. Patient is afebrile and nontoxic-appearing. Patient's blood pressure 145/91. Blood Pressure Assessment: Patient's blood pressure was elevated (>120/80) but appears stable without evidence of hypertension emergency or urgency. The patient was counseled about the risks of hypertension and urged to pursue outpatient monitoring and therapy within a week with their primary care physician. Patient feels better after receiving 1 L of normal saline, 4 mg IM Zofran, 1 mg IM Ativan. CBC: No leukocytosis. No e/o of systemic infection. No e/o anemia. CMP: No e/o severe acidosis, alkalosis, renal failure, diabetic ketoacidosis, liver disease Lipase within normal limits. Since patient has had a cough for a while, patient will be given a prescription for Zithromax, Tessalon Perles. Patient will also be given prescription for Zofran. Patient tolerated oral intake. Patient's physical exam include lungs which were clear to auscultation and a normal pulse oximetry. There is a low suspicion for pneumonia, pneumothorax, mononucleosis, pulmonary embolism, epiglottitis, otitis media, otitis externa, viral/strep pharyngitis, sinusitis, myocarditis, pericarditis, endocarditis, peritonsillar abscess, mastoiditis, retropharyngeal abscess, meningitis, sepsis, acute abdomen or other emergent conditions. Fluids, rest, and symptomatic treatment are recommended for the management of patient's symptoms. Discharge medications: Zithromax, Tessalon Perles, Zofran Patient was instructed to return to the ED for any new or worsening symptoms. They should otherwise follow up with the primary care provider within 2-3 days. The patient's questions were answered at the time of discharge. Patient understood and agreed with discharge management. Disclaimer: Inadvertent spelling and grammatical errors are likely due to EHR/dictation software use and do not reflect on the overall quality of patient care. Also, please note that the electronic time recorded on this note does not necessarily reflect the actual time of the patient encounter. Departure Diagnosis: Primary Impression: Cough Additional Impressions: Body aches Vomiting Vomiting type: unspecified Vomiting Intractability: unspecified Nausea presence: unspecified Qualified Codes: R11.10 - Vomiting, unspecified Condition: Stable Patient Instructions: Bronchitis, Antiobiotic Treatment (Adult), Vomiting (6Y- Adult) Referrals: [facility] YOU HAVE RECEIVED A MEDICAL SCREENING EXAM AND THE RESULTS INDICATE THAT YOU DO NOT HAVE A CONDITION THAT REQUIRES URGENT TREATMENT IN THE EMERGENCY DEPARTMENT. FURTHER EVALUATION AND TREATMENT OF YOUR CONDITION CAN WAIT UNTIL YOU ARE SEEN IN YOUR DOCTORS OFFICE WITHIN THE NEXT 1-2 DAYS. IT IS YOUR RESPONSIBILITY TO MA KE AN APPOINTMENT FOR FOL- CARE. IF YOU HAVE A PRIMARY DOCTOR --you should call your primary doctor and schedule an appointment IF YOU DO NOT HAVE A PRIMARY DOCTOR YOU CAN CALL OUR PHYSICIAN REFERRAL HOTLINE AT IF YOU CAN NOT AFFORD TO SEE A PHYSICIAN YOU CAN CHOSE FROM THE FOLLOWING [facility] [address] [facility]. [facility] [address] [facility] [address] [facility] [facility] [address] [facility] [address] [facility]. [facility]. [address] [facility]. [facility] YOU HAVE RECEIVED A MEDICAL SCREENING EXAM AND THE RESULTS INDICATE THAT YOU DO NOT HAVE A CONDITION THAT REQUIRES URGENT TREATMENT IN THE EMERGENCY DEPARTMENT. FURTHER EVALUATION AND TREATMENT OF YOUR CONDITION CAN WAIT UNTIL YOU ARE SEEN IN YOUR DOCTORS OFFICE WITHIN THE NEXT 1-2 DAYS. IT IS YOUR RESPONSIBILITY TO MAKE AN APPOINTMENT FOR FOLOW-UP CARE. IF YOU HAVE A PRIMARY DOCTOR --you should call your primary doctor and schedule and appointment IF YOU DO NOT HAVE A PRIMARY DOCTOR YOU CAN CALL OUR PHYSICIAN REFERRAL HOTLINE AT . IF YOU CAN NOT AFFORD TO SEE A PHYSICIAN YOU CAN CHOSE FROM THE FOLLOWING [facility] INSTITUTIONS: [facility] [address] [place] [address] [facility] [place] [address] [place], [place] [id number] [place] [address] [address] [place] [address] [facility] URGENT CARE/SPECIALTIES Additional Instructions: Call your primary care doctor TOMORROW for an appointment during the next 2-3 days.See the doctor sooner or return here if your condition worsens before your appointment time. YAKELIN CALERO PA-C Jul 15, 2018 04:35
== END 2018-07-15 04:34 | disposition home or self-care (01) ==
LOC: FTE 23:43
DX: R05 Cough (principal); R11.10 Vomiting, unspecified; R52 Pain, unspecified
CPT/HCPCS: 36415; 80053; 83690; 85025; 86308; 96361; 96372; 96374; 99284; J1885; J2060; J2405; J7030

== ENCOUNTER 2018-07-25 08:58 | Emergency (ER) | payer MEDICARE, BC ==
[~2018-07-25] VITALS: Ht 167.6 cm; Wt 85.6 kg
[~2018-07-25 08:58] MED LIST changes: +AZIT250T PO; +BENZ-6 PO; +ONDA4TAB14 PO
[2018-07-25 09:30] VITALS: BP 129/85; PULSE 62; RESP 18; Ht 167.6 cm; Wt 85.6 kg
[2018-07-25] MEDS ORDERED: LORA5TAB4 PO (10:53)
[2018-07-25] MEDS ORDERED: METHYLPREDNISOLONE 125 MG INJ IM ONE (11:00)
--- NOTE | 2018-07-25 15:21 | ERD ---
ER Documentation Chief Complaint Chief Complaint C/O COUGH, FLU SYMPTOMS FOR 2 MONTHS, WANTS BREATHING TX HPI Patient is a 43-year-old male with a past medical history of Asperger's, anxiet y, who presents the ER for concerns of cough times 2 months. Patient states his cough is dry and occasional. Patient was seen here on 07-14-18. Patient states at that time he was prescribed Z-Khadar which he did complete. Patient denies any fevers or chills. Patient denies any chest pain or shortness of breath. Patient denies any hemoptysis. Patient does report clear nasal congestion. Patient denies any nausea, vomiting, abdominal pain or diarrhea. Patient states he was speaking with his friends and he was told he should try breathing treatment thus he presents here in the ER. ROS All systems reviewed and are negative except as per history of present illness. Medications Home Meds Active Scripts Loratadine* (Claritin*) 5 Mg Tab.rapdis, 5 MG PO DAILY, #10 TAB Prov:ORLY BALDERRAMA PA-C 07/25/18 Ondansetron (Ondansetron Odt) 4 Mg Tab.rapdis, 4 MG PO Q6H PRN for NAUSEA AND/OR VOMITING, #10 TAB Prov:YAKELIN CALERO PA-C 07/15/18 Benzonatate* (Tessalon Perle*) 100 Mg Capsule, 100 MG PO Q8H PRN for COUGH, #20 CAP Prov:YAKELIN CALERO PA-C 07/15/18 Azithromycin* (Zithromax*) 250 Mg Tablet, 250 MG PO .VARUN DIRECTED, #6 TAB TAKE 500 MG (2 TABS) THE FIRST DAY THEN 250 MG (1 TAB) DAYS 2-5 Prov:YAKELIN CALERO PA-C 07/15/18 Reported Medications Ulyvea-Rusbimkb-Trvrnfx* (Inder BROWN* 6,000) 6,000 L-19,000-30,000 Unit Capsule.dr, 1 CAP PO WITH MEALS, CAP 05/29/18 Lorazepam* (Lorazepam*) 1 Mg Tablet, 2 MG PO DAILY PRN for ANXIETY, #30 TAB 05/29/18 Clonidine Hcl* (Clonidine Hcl*) 0.2 Mg Tablet, 0.2 MG PO QHS, TAB 05/29/18 Esomeprazole Mag Trihydrate (Nexium) 40 Mg Capsule.dr, 40 MG PO AC BREAKFAST, #30 CAP 05/29/18 Zolpidem Tartrate* (Zolpidem Tartrate*) 10 Mg Tablet, 10 MG PO QHS PRN for INSOMNIA, #30 TAB 05/29/18 Ibuprofen* (Ibuprofen*) 800 Mg Tab, 800 MG PO Q6H PRN for PAIN, TAB 05/29/18 Quetiapine Fumarate* (Seroquel*) 300 Mg Tablet, 300 MG PO BID, TAB 05/29/18 Metoprolol Tartrate* (Lopressor*) 100 Mg Tablet, 200 MG PO BID, #120 TAB 05/29/18 Allergies Allergies: Coded Allergies: Sulfa (Sulfonamide Antibiotics) (Unverified Allergy, Unknown, 07/25/18) iodine (Unverified Allergy, Unknown, 07/25/18) PMhx/Soc History of Surgery: Yes (APPENDECTOMY, FOOT SURGERY) Anesthesia Reaction: No Hx Neurological Disorder: No Hx Respiratory Disorders: No Hx Cardiac Disorders: No Hx Psychiatric Problems: Yes (anxiety, psychosis, substance abuse) Hx Miscellaneous Medical Probl: Yes (ANXIETY , asperger's sx) Hx Alcohol Use: Yes Hx Substance Use: Yes Hx Tobacco Use: No Smoking Status: Never smoker Physical Exam Vitals Vital Signs Date Temp Pulse Resp B/P (MAP) Pulse Ox O2 O2 Flow FiO2 Time Delivery Rate 07/25/18 98.0 62 18 129/85 97 09:30 (100) Physical Exam GENERAL: Well-developed, well-nourished male. Appears in no acute distress. Speaking in full sentences. HEAD: Normocephalic, atraumatic. EYES: Pupils are equally reactive bilaterally. EOMs grossly intact. No conjunctival erythema. ENT: Moist mucous membranes. No uvula deviation. No kissing tonsils. Oropharynx is nonerythematous. No tonsillar exudates noted. Uvula is midline. No drooling. No trismus. NECK: Supple. No meningismus. Normal range of motion of the neck. LUNG: Clear to auscultation bilaterally. No rhonchi, wheezing, rales or coarse breath sounds. Abdominal retractions, nasal flaring, no tripoding. HEART: Regular rate and rhythm. No murmurs, rubs or gallops. BACK: No midline tenderness. EXTREMITIES: Equal pulses bilaterally. No peripheral clubbing, cyanosis or edema. No unilateral leg swelling. NEUROLOGIC: Alert and oriented. Moving all four extremities without any difficulty. Normal speech. Steady gait. SKIN: Normal color. Warm and dry. No rashes or lesions. Results 24 hrs Current Medications Medications Dose Sig/Umberto Start Time Status Last (Trade) Ordered Route PRN Stop Time Admin Dose Reason Admin 125 mg ONCE ONCE 07/25/18 DC 07/25/18 Methylprednis IM 11:00 11:14 olone Sodium 07/25/18 11:01 Succinate (Solu-Medrol) Procedures/MDM MEDICAL DECISION MAKING: This is a 43-year-old male with a past medical history of Asperger's disease, anxiety, who presents ER for concerns of an intermittent, dry, cough times 2 months. Patient denies any chest pain, shortness of breath, hemoptysis, nausea, vomiting. Patient was seen here recently given a Z-Khadar for his cough. Patient's cough has improved however he continues to have mild dry cough. Review of JOHN report shows that patient has had 26 visits to the ED in the past 12 months. Vital signs were reviewed. Patient was afebrile. Patient was not hypoxic. ENT exam was normal. Lung exam was normal. Patient's symptoms are most consistent with a postviral cough. Patient was advised to take Claritin. Patient requested a breathing treatment here in the ER explained to the patient I do not feel that it is indicated at this time given the patient had no wheezing. Patient was given Solu-Medrol IM to aid with congestion. Low suspicion for TB, pneumonia, CHF, PE, meningitis, sinusitis, otitis externa, acute otitis media, strep pharyngitis, epiglottitis or peritonsillar abscess. Patient was nontoxic, [id number] prior to discharge. PRESCRIPTIONS: Claritin DISCHARGE: At this time, patient is stable for discharge and outpatient management. Supportive therapies such as OTC throat lozenges, salt water gurgles, popsicles and jello discussed. I have instructed the patient to follow-up with his/her primary care physician in 1-2 days. I have instructed the patient to promptly return to the ER for any new or worsening symptoms including increased pain, swelling, fever, nausea, vomiting, weakness or difficulty breathing. The patient and/or family expressed understanding of and agreement with this plan. All questions were answered. Home care instructions were provided. Disclaimer: Inadvertent spelling and grammatical errors are likely due to EHR/dictation software use and do not reflect on the overall quality of patient care. Also, please note that the electronic time recorded on this note does not necessarily reflect the actual time of the patient encounter. Departure Diagnosis: Primary Impression: Post-viral cough syndrome Condition: Stable Patient Instructions: Cough, Chronic, Uncertain Cause, (Adult) Referrals: [facility] YOU HAVE RECEIVED A MEDICAL SCREENING EXAM AND THE RESULTS INDICATE THAT YOU DO NOT HAVE A CONDITION THAT REQUIRES URGENT TREATMENT IN THE EMERGENCY DEPARTMENT. FURTHER EVALUATION AND TREATMENT OF YOUR CONDITION CAN WAIT UNTIL YOU ARE SEEN IN YOUR DOCTORS OFFICE WITHIN THE NEXT 1-2 DAYS. IT IS YOUR RESPONSIBILITY TO MAKE AN APPOINTMENT FOR FOLOW-UP CARE. IF YOU HAVE A PRIMARY DOCTOR --you should call your primary doctor and schedule an appointment IF YOU DO NOT HAVE A PRIMARY DOCTOR YOU CAN CALL OUR PHYSICIAN REFERRAL HOTLINE AT IF YOU CAN NOT AFFORD TO SEE A PHYSICIAN YOU CAN CHOSE FROM THE FOLLOWING [facility] [address] [facility]. [facility] [address] [facility] [facility] [address] [facility] [facility] [address] [facility] [facility] [address] [facility] [facility]. [address] [facility] YOU HAVE RECEIVED A MEDICAL SCREENING EXAM AND THE RESULTS INDICATE THAT YOU DO NOT HAVE A CONDITION THAT REQUIRES URGENT TREATMENT IN THE EMERGENCY DEPARTMENT. FURTHER EVALUATION AND TREATMENT OF YOUR CONDITION CAN WAIT UNTIL YOU ARE SEEN IN YOUR DOCTORS OFFICE WITHIN THE NEXT 1-2 DAYS. IT IS YOUR RESPONSIBILITY TO MAKE AN APPOINTMENT FOR FOLOW-UP CARE. IF YOU HAVE A PRIMARY DOCTOR --you should call your primary doctor and schedule and appointment IF YOU DO NOT HAVE A PRIMARY DOCTOR YOU CAN CALL OUR PHYSICIAN REFERRAL HOTLINE AT . IF YOU CAN NOT AFFORD TO SEE A PHYSICIAN YOU CAN CHOSE FROM THE FOLLOWING [facility] INSTITUTIONS: [facility] [address] [place] [address] [facility] [address] [place] [address] [facility] [address] [place] [address] Additional Instructions: Surgery is not advisable tomorrow as you have a viral illness. Call your primary care doctor TOMORROW for an appointment during the next 1-2 days.See the doctor sooner or return here if your condition worsens before your appointment time. ORLY BALDERRAMA PA-C Jul 25, 2018 15:21
== END 2018-07-25 11:25 | disposition home or self-care (01) ==
LOC: FTE 08:58
DX: G93.3 Postviral and related fatigue syndromes (principal)
CPT/HCPCS: 96372; 99284; J2930

== ENCOUNTER 2018-08-06 12:53 | Emergency (ER) | payer MEDICARE, BC ==
[~2018-08-06] VITALS: Ht 167.6 cm; Wt 81.8 kg
[~2018-08-06 12:53] MED LIST changes: +LORA5TAB4 PO
[2018-08-06 13:06] VITALS: BP 154/94; PULSE 55; RESP 18; Ht 167.6 cm; Wt 81.8 kg
[2018-08-06] MEDS ORDERED: KETOROLAC 60 MG INJ IM STA (14:51)
[2018-08-06] MEDS ORDERED: ONDANSETRON 4 MG INJ IM STA (14:51)
[2018-08-06] MEDS ORDERED: FAMOTIDINE 20 MG TAB PO ONE (15:00)
[2018-08-06] MEDS ORDERED: HYDROCODONE/APAP (10/325) TAB PO ONE (15:00)
--- NOTE | 2018-08-06 15:13 | ERD ---
ER Documentation Chief Complaint Chief Complaint VOMITING WTIH COUGHING, STATES "HE IS WHEEZING" X 1.5 MONTHS HPI 43-year-old male with history of Asperger's syndrome as well as general anxiety who presented to ED with multiple complaints. He is primarily concerned with persistent nausea and vomiting as well complaint of generalized pain. Of note patient with multiple recent ER visits. Patient requesting IV pain medication. Noted history of malingering and drug-seeking behavior. ROS All systems reviewed and are negative except as per history of present illness. Medications Home Meds Active Scripts Famotidine* (Pepcid*) 20 Mg Tablet, 20 MG PO BID for 4 Days, #30 TAB Prov:SHANNAN MCKEON-C 08/06/18 Tramadol HCl (Tramadol HCl) 50 Mg Tablet, 50 MG PO Q4 PRN for PAIN, #7 TAB Prov:SHANNAN MCKEON-C 08/06/18 Ondansetron (Ondansetron Odt) 4 Mg Tab.rapdis, 4 MG PO Q6H PRN for NAUSEA AND/OR VOMITING, #10 TAB Prov:SHANNAN MCKEON-C 08/06/18 Loratadine* (Claritin*) 5 Mg Tab.rapdis, 5 MG PO DAILY, #10 TAB Prov:ORLY BALDERRAMA-C 07/25/18 Ondansetron (Ondansetron Odt) 4 Mg Tab.rapdis, 4 MG PO Q6H PRN for NAUSEA AND/OR VOMITING, #10 TAB Prov:YAKELIN CALERO-C 07/15/18 Benzonatate* (Tessalon Perle*) 100 Mg Capsule, 100 MG PO Q8H PRN for COUGH, #20 CAP Prov:YAKELIN CALERO-C 07/15/18 Azithromycin* (Zithromax*) 250 Mg Tablet, 250 MG PO .TonyPACK DIRECTED, #6 TAB TAKE 500 MG (2 TABS) THE FIRST DAY THEN 250 MG (1 TAB) DAYS 2-5 Prov:YAKELIN CALERO-C 07/15/18 Reported Medications Jrzvic-Dgtruzxx-Yfptrnb* (Inder BROWN* 6,000) 6,000 L-19,000-30,000 Unit Capsule.dr, 1 CAP PO WITH MEALS, CAP 05/29/18 Lorazepam* (Lorazepam*) 1 Mg Tablet, 2 MG PO DAILY PRN for ANXIETY, #30 TAB 05/29/18 Clonidine Hcl* (Clonidine Hcl*) 0.2 Mg Tablet, 0.2 MG PO QHS, TAB 05/29/18 Esomeprazole Mag Trihydrate (Nexium) 40 Mg Capsule.dr, 40 MG PO AC BREAKFAST, #30 CAP 05/29/18 Zolpidem Tartrate* (Zolpidem Tartrate*) 10 Mg Tablet, 10 MG PO QHS PRN for INSOMNIA, #30 TAB 05/29/18 Ibuprofen* (Ibuprofen*) 800 Mg Tab, 800 MG PO Q6H PRN for PAIN, TAB 05/29/18 Quetiapine Fumarate* (Seroquel*) 300 Mg Tablet, 300 MG PO BID, TAB 05/29/18 Metoprolol Tartrate* (Lopressor*) 100 Mg Tablet, 200 MG PO BID, #120 TAB 05/29/18 Allergies Allergies: Coded Allergies: Sulfa (Sulfonamide Antibiotics) (Unverified Allergy, Unknown, 08/06/18) iodine (Unverified Allergy, Unknown, 08/06/18) PMhx/Soc History of Surgery: Yes (APPENDECTOMY, FOOT SURGERY) Anesthesia Reaction: No Hx Neurological Disorder: No Hx Respiratory Disorders: No Hx Cardiac Disorders: No Hx Psychiatric Problems: Yes (anxiety, psychosis, substance abuse) Hx Miscellaneous Medical Probl: Yes (ANXIETY , asperger's sx) Hx Alcohol Use: Yes Hx Substance Use: Yes Hx Tobacco Use: No Smoking Status: Never smoker FmHx Family History: No diabetes, No coronary disease, No other Physical Exam Vitals Vital Signs Date Temp Pulse Resp B/P (MAP) Pulse Ox O2 O2 Flow FiO2 Time Delivery Rate 08/06/18 98.1 13:26 08/06/18 98.2 55 18 154/94 99 13:06 (114) Physical Exam Const: No acute distress Head: Atraumatic Eyes: Normal Conjunctiva ENT: Normal External Ears, Nose and Mouth. Neck: Full range of motion. No meningismus. Resp: Clear to auscultation bilaterally Cardio: Regular rate and rhythm, no murmurs Abd: Soft, non distended, Normal bowel sounds. no tenderness during distracted exam Skin: No petechiae or rashes Back: No midline or flank tenderness Ext: No cyanosis, or edema Neur: Awake and alert Psych: hyperactive, appearing anxious Results 24 hrs Current Medications Medications Dose Sig/Umberto Start Time Status Last (Trade) Ordered Route PRN Stop Time Admin Dose Reason Admin Famotidine 20 mg ONCE ONCE 08/06/18 DC (Pepcid) PO 15:00 08/06/18 15:01 1 tab ONCE ONCE 08/06/18 DC Acetaminophen PO 15:00 08/06/18 / 15:01 Hydrocodone Bitart (Mentone (10/325)) Ketorolac 60 mg ONCE STAT 08/06/18 DC 08/06/18 Tromethamine IM 14:51 08/06/18 14:57 (Toradol) 14:52 Ondansetron 4 mg ONCE STAT 08/06/18 DC 08/06/18 HCl (Zofran IM 14:51 08/06/18 14:57 Inj) 14:52 Procedures/MDM ER COURSE: The patient was stable throughout ED course. Ordered PO pain medications patient refused. Will treat with single dose of IM Toradol as well as Zofran. Patient does not warrant any other treatment or intervention. I kept the patient and/or family informed of laboratory and diagnostic imaging results throughout the emergency room course. The patient was promptly evaluated and a treatment plan was devised based on H&P and other data. This plan was discussed with the patient who agreed and had no further questions or concerns prior to discharge. MEDICAL DECISION MAKIN-year-old male with noted psych history of general anxiety as well as Asperger's syndrome presenting with numerous complaints. Patient is clinically stable not appearing septic or dehydrated with normal vital signs and unremarkable exam doubt any acute pathology despite numerous medical complaints. Respiratory exam unremarkable with patient with good breath sounds bilaterally no acute distress noted. Abdomen is soft positive bowel sounds noted no rebound or guarding during distracted exam. Noted to be walking unit without issue. Offered p.o. pain medications patient refusing p.o. time. Patient with documented multiple visits to ED with unremarkable workup. Believe strong component of psych to presentation. He denies any suicidal ideation or depression. States he follows with his psychiatrist regularly and has been compliant with medications. DISPOSITION PLAN: We discussed follow up with the patient's primary care doctor within 24 to 48 hours. Patient counseled regarding my diagnostic impression and care plan. Prior to discharge all questions answered. Pt agrees with treatment plan and understands strict return precautions. Precautionary instructions provided including instructions to return to the ER if not improving or for any worsening or changing symptoms or concerns. ExitCare instructions provided. Prior to discharge, patients vital signs have been reviewed SPECIALIST FOLLOW UP RECOMMENDED: None Patient has been advised to follow up with primary care in 1-2 days. Disclaimer: Inadvertent spelling and grammatical errors are likely due to EHR/ dictation software use and do not reflect on the overall quality of patient care. Also, please note that the electronic time recorded on this note does not necessarily reflect the actual time of the patient encounter. Departure Condition: Stable Referrals: [facility] Additional Instructions: Patient advised to proceed to nearest ED if symptoms worsen. SHANNAN MCKEON Aug 06, 2018 14:54
[2018-08-06] MEDS ORDERED: ONDA4TAB14 PO (15:47)
[2018-08-06] MEDS ORDERED: TRAM50TA2 PO (15:47)
[2018-08-06] MEDS ORDERED: FAMO-96 PO (15:49)
== END 2018-08-06 16:15 | disposition home or self-care (01) ==
LOC: FTE 12:53
DX: R11.0 Nausea (principal)
CPT/HCPCS: 96372; 99284; J1885; J2405

== ENCOUNTER 2018-09-24 14:29 | Inpatient (IN) | payer MEDICARE, BC ==
[~2018-09-24] VITALS: Ht 162.6 cm; Wt 91.4 kg
[~2018-09-24 14:29] MED LIST changes: +FAMO-96 PO; +TRAM50TA2 PO
[2018-09-24 14:41] VITALS: Ht 162.6 cm; Wt 91.4 kg
[2018-09-24] MEDS ORDERED: SOD CHLORIDE 0.9% 1,000 ML IV STA ×3 (14:55→15:54)
[2018-09-24] MEDS ORDERED: CLON0.2T5 PO (15:07)
[2018-09-24] MEDS ORDERED: METO-407 PO (15:08)
[2018-09-24] MEDS ORDERED: QUET300T18 PO (15:09)
[2018-09-24] MEDS ORDERED: IBUP-1545 PO (15:09)
[2018-09-24] MEDS ORDERED: ESOM40CA PO (15:10)
[2018-09-24] MEDS ORDERED: LORA-444 PO (15:11)
[2018-09-24] MEDS ORDERED: ZOLP10TA5 PO (15:12)
[2018-09-24] MEDS ORDERED: NACL 0.9% 3 ML SYG IV SCH (16:30)
[2018-09-24] MEDS ORDERED: ONDANSETRON 4 MG INJ IV PRN (16:30)
--- NOTE | 2018-09-24 16:40 | HP ---
Date/Time of Note Date/Time of Note DATE: 09/24/18 TIME: 16:39 Assessment/Plan VTE Prophylaxis Pharmacological prophylaxis: other Lines/Catheters IV Catheter Type (from [facility]): Peripheral IV Assessment/Plan Hospital Course Patient is a male with past medical history significant for Seroquel overdose, anxiety, psychosis who presents to [facility] after being brought in by ambulance. According to EMS report patient was being found unresponsive at home, 6 mg of Narcan were given on route with minor improvement in respiration. Patient currently is snoring very loudly with unlabored breaths however he is not arousable. Patient does have a gag and cough and does respond to noxious stimuli. There is some spontaneous movement but this is very intermittent. Patient HPI unable to be completed due to patient's mental st atus, no family at bedside Objective Physical exam General: Patient is laying in bed snoring very loudly, not arousable, patient appears clean and very well kept Mentation: Patient is not alert or oriented Head: Normocephalic atraumatic Eyes: EOMI, pupils reactive to light but minimal Neck: Supple, nontender, midline Respiratory: Clear to auscultation bilaterally Cardiovascular: regular rate, no obvious murmurs Gastrointestinal: non-tender to palpation, bowel sounds heard. Neurological: Responds to painful stimuli in all extremities, some movement is observed in his right upper extremity Skin: No new skin lesions Assessment and plan Acute encephalopathy -Due to patient's previous presentations, a Seroquel overdose is highly likely. Patient's urine tox screen is negative for all opiates, benzos or other measurable medications or drugs, alcohol is negative, acetaminophen is negative, salicylates are negative -CT head stat is pending as we cannot rule out other etiology -Patient is able to protect his airway at this time, cough and gag is present, snoring very loudly, no nausea or vomiting, response to noxious stimuli and has been observed moving his arm slightly. There will be a very low threshold to intubate -ABG ordered, if needed will intubate immediately -ICU monitoring, primary goal of possible Seroquel overdose will be supportive care, will monitor very closely -Unknown if accidental or intentional, will hold off on psych consult until more information is given -chest xray pending History of intentional overdose with Seroquel and Ativan -Patient is well-known to the emergency department -Patient presented similarly a few months prior and left AGAINST MEDICAL ADVICE -Monitor closely intubated as needed Anxiety/psychosis -Hold off on Seroquel for now, we will need more information before consulting psychiatry Disposition -The leading diagnosis is likely Seroquel overdose which supportive care will be the treatment, patient will be monitored in the ICU very closely, based on how patient does on a regular basis and on ABG results will have a very low th reshold to intubate if needed. -We will need to follow-up on CT head which was ordered stat. -Patient hooked up to pacer pads Result Diagram: 09/24/18 1439 09/24/18 1439 Results 24hrs Laboratory Tests Test 09/24/18 14:39 09/24/18 15:06 White Blood Count 7.5 Red Blood Count 4.18 #L Hemoglobin 12.3 L Hematocrit 37.1 L Mean Corpuscular Volume 88.8 Mean Corpuscular Hemoglobin 29.4 Mean Corpuscular Hemoglobin Concent 33.2 Red Cell Distribution Width 13.2 Platelet Count 285 # Mean Platelet Volume 8.8 Immature Granulocytes % 0.400 Neutrophils % 84.6 H Lymphocytes % 7.8 L Monocytes % 5.4 Eosinophils % 1.5 Basophils % 0.3 Nucleated Red Blood Cells % 0.0 Immature Granulocytes # 0.030 Neutrophils # 6.3 Lymphocytes # 0.6 L Monocytes # 0.4 Eosinophils # 0.1 Basophils # 0.0 Nucleated Red Blood Cells # 0.0 Sodium Level 142 Potassium Level 4.5 Chloride Level 111 H Carbon Dioxide Level 24 Anion Gap 7 Blood Urea Nitrogen 11 Creatinine 1.02 Est Glomerular Filtrat Rate mL/min > 60 Glucose Level 115 Calcium Level 9.0 Total Bilirubin 0.2 Direct Bilirubin 0.00 Indirect Bilirubin 0.2 Aspartate Amino Transf (AST/SGOT) 18 Alanine Aminotransferase (ALT/SGPT) 17 Alkaline Phosphatase 97 Total Protein 6.0 L Albumin 3.3 Globulin 2.70 Albumin/Globulin Ratio 1.22 Salicylates Level < 1.0 L Acetaminophen Level < 10.0 L Ethyl Alcohol Level < 10.0 H Urine Color YELLOW Urine Clarity CLEAR Urine pH 6.0 Urine Specific Cherry Log 1.006 Urine Ketones NEGATIVE Urine Nitrite NEGATIVE Urine Bilirubin NEGATIVE Urine Urobilinogen NEGATIVE Urine Leukocyte Esterase NEGATIVE Urine Hemoglobin NEGATIVE Urine Glucose NEGATIVE Urine Total Protein NEGATIVE Urine Opiates Screen Negative Urine Barbiturates Negative Urine Amphetamines Screen Negative Urine Benzodiazepines Screen Negative Urine Cocaine Screen Negative Urine Cannabinoids Negative HPI/ROS Admit Date/Time Admit Date/Time PMH/Family/Social Past Medical History Medications Current Medications Sodium Chloride 1,000 ml @ 1,000 mls/hr Q1H STAT IV Last administered on 09/24/18at 16:02; Admin Dose 1,000 MLS/HR; Start 09/24/18 at 15:54; Stop 09/24/18 at 16:53 Sodium Chloride 1,000 ml @ 1,000 mls/hr Q1H STAT IV Last administered on 09/24/18at 16:02; Admin Dose 1,000 MLS/HR; Start 09/24/18 at 15:54; Stop 09/24/18 at 16:53 Sodium Chloride 1,000 ml @ 100 mls/hr Q10H IV ; Start 09/24/18 at 16:24; Status UNV IV Flush (NS 3 ml) 3 ml PER PROTOCOL IV ; Start 09/24/18 at 16:30; Status UNV Ondansetron HCl (Zofran Inj) 4 mg Q6H PRN IV NAUSEA/VOMITING; Start 09/24/18 at 16:30; Status UNV Pantoprazole (Protonix Iv) 40 mg DAILY@06 IV ; Start 09/25/18 at 06:00; Status UNV Coded Allergies: Sulfa (Sulfonamide Antibiotics) (Unverified Allergy, Unknown, 09/24/18) iodine (Unverified Allergy, Unknown, 09/24/18) Social History Smoking Status: Never smoker Exam/Review of Systems Vital Signs Vitals Vital Signs Date Temp Pulse Resp B/P (MAP) Pulse Ox O2 O2 Flow FiO2 Time Delivery Rate 09/24/18 Nasal 5.0 14:42 Cannula 09/24/18 98.2 84 23 100/67 96 14:41 (78) ANNI BRAUN Sep 24, 2018 16:39
--- NOTE | 2018-09-24 18:46 | ERD ---
ER Documentation Chief Complaint Chief Complaint BIB RA p being found unresponsive at home HPI Patient is a 43-year-old male who presents altered. Please note the history and physical exam is limited secondary to the patient's altered mental status. The patient was found near the wash with possible overdose. He was given 6 mg of Narcan and is now breathing better per the paramedics. Upon review of old medical records the patient has multiple visits to the ER with overdose. Review of the emergency department information exchange system shows visits to 5 separate emergency departments for a total of 26 visits over the past 1 year. On previous admission he had overdosed on Ativan and Seroquel. ROS All systems reviewed and are negative except as per history of present illness. Medications Home Meds Reported Medications Zolpidem Tartrate* (Zolpidem Tartrate*) 10 Mg Tablet, 10 MG PO QHS PRN for INSOMNIA, #30 TAB 09/24/18 Lorazepam* (Ativan*) 2 Mg Tablet, 2 MG PO HS PRN for ANXIETY, #30 TAB 09/24/18 Esomeprazole Mag Trihydrate (Nexium) 40 Mg Capsule.dr, 40 MG PO DAILY, #30 CAP 09/24/18 Quetiapine Fumarate* (Quetiapine Fumarate*) 300 Mg Tablet, 300 MG PO BID, TAB 09/24/18 Ibuprofen* (Ibuprofen*) 800 Mg Tab, 800 MG PO NEEDED PRN for PAIN, TAB 09/24/18 Metoprolol Tartrate* (Lopressor*) 100 Mg Tablet, 200 MG PO BID, #120 TAB 09/24/18 Clonidine Hcl* (Clonidine Hcl*) 0.2 Mg Tablet, 0.2 MG PO QHS, TAB 09/24/18 Discontinued Reported Medications Knlneb-Tycpkpxg-Wdjirwl* (Inder BROWN* 6,000) 6,000 L-19,000-30,000 Unit Capsule.dr, 1 CAP PO WITH MEALS, CAP 05/29/18 Lorazepam* (Lorazepam*) 1 Mg Tablet, 2 MG PO DAILY PRN for ANXIETY, #30 TAB 05/29/18 Clonidine Hcl* (Clonidine Hcl*) 0.2 Mg Tablet, 0.2 MG PO QHS, TAB 05/29/18 Esomeprazole Mag Trihydrate (Nexium) 40 Mg Capsule.dr, 40 MG PO AC BREAKFAST, #30 CAP 05/29/18 Zolpidem Tartrate* (Zolpidem Tartrate*) 10 Mg Tablet, 10 MG PO QHS PRN for INSOMNIA, #30 TAB 05/29/18 Ibuprofen* (Ibuprofen*) 800 Mg Tab, 800 MG PO Q6H PRN for PAIN, TAB 05/29/18 Quetiapine Fumarate* (Seroquel*) 300 Mg Tablet, 300 MG PO BID, TAB 05/29/18 Metoprolol Tartrate* (Lopressor*) 100 Mg Tablet, 200 MG PO BID, #120 TAB 05/29/18 Discontinued Scripts Famotidine* (Pepcid*) 20 Mg Tablet, 20 MG PO BID for 4 Days, #30 TAB Prov:SHANNAN MCKEON-C 08/06/18 Tramadol HCl (Tramadol HCl) 50 Mg Tablet, 50 MG PO Q4 PRN for PAIN, #7 TAB Prov:SHANNAN MCKEON-C 08/06/18 Ondansetron (Ondansetron Odt) 4 Mg Tab.rapdis, 4 MG PO Q6H PRN for NAUSEA AND/OR VOMITING, #10 TAB Prov:SHANNAN MCKEON-C 08/06/18 Loratadine* (Claritin*) 5 Mg Tab.rapdis, 5 MG PO DAILY, #10 TAB Prov:ORLY BALDERRAMA-C 07/25/18 Ondansetron (Ondansetron Odt) 4 Mg Tab.rapdis, 4 MG PO Q6H PRN for NAUSEA AND/OR VOMITING, #10 TAB Prov:YAKELIN CALEROC 07/15/18 Benzonatate* (Tessalon Perle*) 100 Mg Capsule, 100 MG PO Q8H PRN for COUGH, #20 CAP Prov:YAKELIN CALERO-C 07/15/18 Azithromycin* (Zithromax*) 250 Mg Tablet, 250 MG PO .TonyPACK DIRECTED, #6 TAB TAKE 500 MG (2 TABS) THE FIRST DAY THEN 250 MG (1 TAB) DAYS 2-5 Prov:YAKELIN CALERO-C 07/15/18 Allergies Allergies: Coded Allergies: Sulfa (Sulfonamide Antibiotics) (Unverified Allergy, Unknown, 09/24/18) iodine (Unverified Allergy, Unknown, 09/24/18) PMhx/Soc History of Surgery: Yes (APPENDECTOMY, FOOT SURGERY) Anesthesia Reaction: No Hx Neurological Disorder: No Hx Respiratory Disorders: No Hx Cardiac Disorders: No Hx Psychiatric Problems: Yes (anxiety, psychosis, substance abuse) Hx Miscellaneous Medical Probl: Yes (ANXIETY , asperger's sx) Hx Alcohol Use: No (UTD: see RN notes) Hx Substance Use: No Hx Tobacco Use: No Smoking Status: Never smoker FmHx Unable to obtain Physical Exam Vitals Vital Signs Date Temp Pulse Resp B/P (MAP) Pulse Ox O2 O2 Flow FiO2 Time Delivery Rate 09/24/18 73 19 96/53 (67) 100 Room Air 18:13 09/24/18 99 35 17:47 09/24/18 77 19 91/54 (66) 98 Non 16:42 Rebreather 09/24/18 Nasal 5.0 14:42 Cannula 09/24/18 Nasal 5 14:42 Cannula 09/24/18 98.2 84 23 100/67 96 14:41 (78) Physical Exam Const: No acute distress Head: Atraumatic Eyes: Normal Conjunctiva ENT: Normal External Ears, Nose and Mouth. Neck: Full range of motion. No meningismus. Resp: Clear to auscultation bilaterally Cardio: Regular rate and rhythm, no murmurs Abd: Soft, non tender, non distended. Normal bowel sounds Skin: No petechiae or rashes Back: No midline or flank tenderness Ext: No cyanosis, or edema Neur: Awake and alert Psych: Normal Mood and Affect Result Diagram: 09/24/18 1439 09/24/18 1439 Results 24 hrs Laboratory Tests Test 09/24/18 14:39 09/24/18 15:06 09/24/18 16:30 White Blood Count 7.5 10^3/ul Red Blood Count 4.18 10^6/ul Hemoglobin 12.3 g/dl Hematocrit 37.1 % Mean Corpuscular Volume 88.8 fl Mean Corpuscular 29.4 pg Hemoglobin Mean Corpuscular 33.2 g/dl Hemoglobin Concent Red Cell Distribution 13.2 % Width Platelet Count 285 10^3/UL Mean Platelet Volume 8.8 fl Immature Granulocytes % 0.400 % Neutrophils % 84.6 % Lymphocytes % 7.8 % Monocytes % 5.4 % Eosinophils % 1.5 % Basophils % 0.3 % Nucleated Red Blood Cells 0.0 /100WBC % Immature Granulocytes # 0.030 10^3/ul Neutrophils # 6.3 10^3/ul Lymphocytes # 0.6 10^3/ul Monocytes # 0.4 10^3/ul Eosinophils # 0.1 10^3/ul Basophils # 0.0 10^3/ul Nucleated Red Blood Cells 0.0 10^3/ul # Sodium Level 142 mmol/L Potassium Level 4.5 mmol/L Chloride Level 111 mmol/L Carbon Dioxide Level 24 mmol/L Anion Gap 7 Blood Urea Nitrogen 11 mg/dl Creatinine 1.02 mg/dl Est Glomerular Filtrat > 60 mL/min Rate mL/min Glucose Level 115 mg/dl Calcium Level 9.0 mg/dl Total Bilirubin 0.2 mg/dl Direct Bilirubin 0.00 mg/dl Indirect Bilirubin 0.2 mg/dl Aspartate Amino 18 IU/L Transf (AST/SGOT) Alanine 17 IU/L Aminotransferase (ALT/SGP T) Alkaline Phosphatase 97 IU/L Total Protein 6.0 g/dl Albumin 3.3 g/dl Globulin 2.70 g/dl Albumin/Globulin Ratio 1.22 Salicylates Level < 1.0 mg/dl Acetaminophen Level < 10.0 ug/ml Ethyl Alcohol Level < 10.0 mg/dl Urine Color YELLOW Urine Clarity CLEAR Urine pH 6.0 Urine Specific [place] 1.006 Urine Ketones NEGATIVE mg/dL Urine Nitrite NEGATIVE mg/dL Urine Bilirubin NEGATIVE mg/dL Urine Urobilinogen NEGATIVE mg/dL Urine Leukocyte Esterase NEGATIVE Mari/ul Urine Hemoglobin NEGATIVE mg/dL Urine Glucose NEGATIVE mg/dL Urine Total Protein NEGATIVE mg/dl Urine Opiates Screen Negative Urine Barbiturates Negative Urine Amphetamines Screen Negative Urine Benzodiazepines Negative Screen Urine Cocaine Screen Negative Urine Cannabinoids Negative Blood Gas Specimen Source Blood arterial Arterial Blood Date 09/24/2018 5:14:33 PM Drawn Arterial Blood pH 7.254 (Temp corrected) Arterial Blood pCO2 49.6 mmhg (Temp correct) Arterial Blood pO2 360.5 mmHG (Temp corrected) Arterial Blood HCO3 21.5 mmol/L Arterial Blood Base -5.8 mmol/L Excess Arterial Blood 99.4 mmHG Oxygen Saturation Roberto Test ACCEPTAB Arterial Blood Gas Right Radial Puncture Site Arterial 0.1 % Blood Carboxyhemoglobin Arterial Blood 0.4 % Methemoglobin Blood Gas A-a O2 302.9 mmHg Differential Oxyhemoglobin Percent 98.9 % Blood Gas Temperature 37.0 C Blood Gas Modality MASK - NRB FiO2 100.0 % Blood Gas Critical Value JOLLY Morelos Read Back Blood Gas Notified Whom [facility] Blood Gas Notified Time 09/24/2018 5:19:47 PM Current Medications Medications Dose Sig/Umberto Start Time Status Last (Trade) Ordered Route PRN Stop Time Admin Dose Reason Admin Sodium 1,000 ml @ Q1H STAT 09/24/18 DC 09/24/18 Chloride 1,000 mls/hr IV 14:55 15:02 09/24/18 15:54 Sodium 1,000 ml @ Q1H STAT 09/24/18 DC 09/24/18 Chloride 1,000 mls/hr IV 15:54 16:02 09/24/18 16:53 Sodium 1,000 ml @ Q1H STAT 09/24/18 DC 09/24/18 Chloride 1,000 mls/hr IV 15:54 16:02 09/24/18 16:53 Sodium 1,000 ml @ Q10H IV 09/24/18 Chloride 100 mls/hr 20:00 IV Flush 3 ml PER 09/24/18 (NS 3 ml) PROTOCOL IV 16:30 Ondansetron 4 mg Q6H PRN 09/24/18 HCl (Zofran IV 16:30 Inj) NAUSEA/VOMITI NG Famotidine 20 mg DAILY IV 09/25/18 DC (Pepcid Iv) 09:00 09/25/18 09:00 Famotidine 20 mg Q12 IV 09/24/18 (Pepcid Iv) 21:00 Procedures/MDM CT brain negative per radiology. Chest x-ray read by radiology. EKG read by me: Rate/Rhythm: Regular rate and rhythm at a normal rate Intervals: Normal Impression: No evidence of ischemia or arrhythmia Patient is a 43-year-old male who presents with acute overdose with altered mental status. Upon arrival to the emergency department he was not responding to commands but was breathing on his own at greater than 20 breaths/min. He appeared to be protecting his airway. Laboratory studies are basically normal. Urine drug screen is negative. Aspirin, Tylenol, and alcohol levels are negative. I believe he likely has some sort of overdose and potentially a multi-drug overdose. I believe this is a toxic metabolic encephalopathy. I considered intubation but did not feel the patient required intubation. I perform 3 airway exams throughout the course of his admission and he had no signs of respiratory decompensation requiring intubation. His mental status has started to improve. He was placed on high flow nasal cannula oxygen to help with ventilation. The patient will be admitted to the care of Dr. Rios to the intensive care unit. He was initially hypotensive but I doubt sepsis. He was given 3 L of normal saline with improvement in his blood pressure. Critical Care: Time: 45 minutes excluding all billable procedures. Treatments/Evaluations: Close monitoring and treatment of unstable vital signs, cardiorespiratory, and neurologic status, while maintaining tight balance of fluid, respiratory, and cardiac interventions. Departure Diagnosis: Primary Impression: Altered mental status Altered mental status type: unspecified Qualified Codes: R41.82 - Altered mental status, unspecified Additional Impression: Overdose Encounter type: initial encounter Injury intent: undetermined intent Qualified Codes: T50.904A - Poisoning by unspecified drugs, medicaments and biological substances, undetermined, initial encounter Condition: Critical DAISY AZEVEDO MD Sep 24, 2018 18:46
[2018-09-24] MEDS ORDERED: SOD CHLORIDE 0.9% 1,000 ML IV SCH (20:00)
[2018-09-24] MEDS: FAMOTIDINE 20 MG INJ IV SCH (20:52)
[2018-09-25] VITALS (12 sets, daily range): BP systolic 105–149; BP diastolic 76–102; PULSE 67–85; RESP 12–26
[2018-09-25] MEDS: SOD CHLORIDE 0.9% 1,000 ML IV SCH ×2 (03:56→14:15)
[2018-09-25] MEDS ORDERED: LORAZEPAM 2 MG INJ IV ONE (05:00)
[2018-09-25] MEDS: FAMOTIDINE 20 MG INJ IV SCH ×2 (08:03→20:05)
[2018-09-25] MEDS ORDERED: FAMOTIDINE 20 MG INJ IV SCH (09:00)
--- NOTE | 2018-09-25 15:21 | PN ---
Date/Time of Note Date/Time of Note DATE: 09/25/18 TIME: 15:18 Assessment/Plan VTE Prophylaxis Risk score (from Nsg)>0 risk: 2 Pharmacological prophylaxis: NA/contraindicated Pharm contraindication: low risk/ambulating Lines/Catheters IV Catheter Type (from Nrsg): Peripheral IV Assessment/Plan Hospital Course 1. Acute toxic encephalopathy -Due to patient's previous presentations, a Seroquel overdose is highly likely. Patient's urine tox screen is negative for all opiates, benzos or other measurable medications or drugs, alcohol is negative, acetaminophen is negative, salicylates are negative -CT head shows no significant findings -Transfer to [facility], psych consultation obtained -Unknown if accidental or intentional, will hold off on psych consult until more information is given 2. History of intentional overdose with Seroquel and Ativan -Patient is well-known to the emergency department -Patient presented similarly a few months prior and left AGAINST MEDICAL ADVICE 3. Anxiety/psychosis -Hold off on Seroquel for now, psychiatry consultation Result Diagram: 09/25/18 0449 09/25/18 0449 Results 24hrs Laboratory Tests Test 09/24/18 16:30 09/25/18 02:33 09/25/18 04:49 Blood Gas Specimen Blood arterial Blood arterial Source Arterial Blood Date 09/24/2018 5:14:33 PM 09/25/2018 2:35:26 AM Drawn Arterial Blood pH 7.254 *L 7.348 L (Temp corrected) Arterial Blood pCO2 49.6 H 40.7 (Temp correct) Arterial Blood pO2 360.5 H 153.0 H (Temp corrected) Arterial Blood HCO3 21.5 L 21.9 L Arterial Blood Base -5.8 L -3.5 L Excess Arterial Blood 99.4 H 98.7 H Oxygen Saturation Roberto Test ACCEPTAB ACCEPTAB Arterial Blood Gas Right Radial Right Radial Puncture Site Arterial 0.1 0.3 Blood Carboxyhemoglob in Arterial Blood 0.4 0.4 Methemoglobin Blood Gas A-a O2 302.9 H 49.2 H Differential Oxyhemoglobin Percent 98.9 98.0 Blood Gas Temperature 37.0 37.0 Blood Gas Modality MASK - NRB HFNC FiO2 100.0 35.0 Blood Gas Critical JOLLY Morelos Value Read Back Blood Gas Notified MDA UP Whom Blood Gas Notified 09/24/2018 5:19:47 PM 09/25/2018 2:45:24 AM Time White Blood Count 5.8 # Red Blood Count 4.19 L Hemoglobin 12.2 L Hematocrit 37.3 L Mean Corpuscular 89.0 Volume Mean Corpuscular 29.1 Hemoglobin Mean Corpuscular 32.7 Hemoglobin Concent Red Cell Distribution 13.6 Width Platelet Count 265 Mean Platelet Volume 9.6 Immature Granulocytes 0.300 % Neutrophils % 72.2 Lymphocytes % 17.9 Monocytes % 8.0 Eosinophils % 1.4 Basophils % 0.2 Nucleated Red Blood 0.0 Cells % Immature Granulocytes 0.020 # Neutrophils # 4.2 Lymphocytes # 1.0 Monocytes # 0.5 Eosinophils # 0.1 Basophils # 0.0 Nucleated Red Blood 0.0 Cells # Sodium Level 143 Potassium Level 4.1 Chloride Level 114 H Carbon Dioxide Level 24 Anion Gap 5 Blood Urea Nitrogen 10 Creatinine 0.67 Est Glomerular > 60 Filtrat Rate mL/min Glucose Level 98 Hemoglobin A1c 5.5 Calcium Level 8.3 L Magnesium Level 1.8 Total Bilirubin 0.2 Direct Bilirubin 0.00 Indirect Bilirubin 0.2 Aspartate Amino 43 # Transf (AST/SGOT) Alanine 29 Aminotransferase (ALT /SGPT) Alkaline Phosphatase 104 Total Protein 5.5 L Albumin 3.1 L Globulin 2.40 Albumin/Globulin 1.29 Ratio Triglycerides Level 147 Cholesterol Level 128 LDL Cholesterol, 63 Calculated HDL Cholesterol 36 Cholesterol/HDL Ratio 3.5 Thyroid Stimulating 1.800 Hormone (TSH) Subjective 24 Hr Interval Summary Constitutional: disoriented Exam/Review of Systems Exam Vitals Vital Signs Date Temp Pulse Resp B/P (MAP) Pulse Ox O2 O2 Flow FiO2 Time Delivery Rate 09/25/18 97.6 73 18 125/88 99 Room Air 14:32 (100) 09/25/18 2.0 12:00 09/25/18 35 01:39 Intake and Output 09/24/18 09/24/18 09/25/18 1515:00 23:00 07:00 IntakeIntake Total 3100 ml OutputOutput Total 295 ml BalanceBalance 2805 ml Psych: confusion Respiratory: clear to auscultation Cardiovascular: regular rate and rhythm Gastrointestinal: soft; No distended Musculoskeletal: nl extremities to inspection Results Results 24hrs Laboratory Tests Test 09/24/18 16:30 09/25/18 02:33 09/25/18 04:49 Blood Gas Specimen Blood arterial Blood arterial Source Arterial Blood Date 09/24/2018 5:14:33 PM 09/25/2018 2:35:26 AM Drawn Arterial Blood pH 7.254 *L 7.348 L (Temp corrected) Arterial Blood pCO2 49.6 H 40.7 (Temp correct) Arterial Blood pO2 360.5 H 153.0 H (Temp corrected) Arterial Blood HCO3 21.5 L 21.9 L Arterial Blood Base -5.8 L -3.5 L Excess Arterial Blood 99.4 H 98.7 H Oxygen Saturation Roberto Test ACCEPTAB ACCEPTAB Arterial Blood Gas Right Radial Right Radial Puncture Site Arterial 0.1 0.3 Blood Carboxyhemoglob in Arterial Blood 0.4 0.4 Methemoglobin Blood Gas A-a O2 302.9 H 49.2 H Differential Oxyhemoglobin Percent 98.9 98.0 Blood Gas Temperature 37.0 37.0 Blood Gas Modality MASK - NRB HFNC FiO2 100.0 35.0 Blood Gas Critical JOLLY Morelos Value Read Back Blood Gas Notified MDA UP Whom Blood Gas Notified 09/24/2018 5:19:47 PM 09/25/2018 2:45:24 AM Time White Blood Count 5.8 # Red Blood Count 4.19 L Hemoglobin 12.2 L Hematocrit 37.3 L Mean Corpuscular 89.0 Volume Mean Corpuscular 29.1 Hemoglobin Mean Corpuscular 32.7 Hemoglobin Concent Red Cell Distribution 13.6 Width Platelet Count 265 Mean Platelet Volume 9.6 Immature Granulocytes 0.300 % Neutrophils % 72.2 Lymphocytes % 17.9 Monocytes % 8.0 Eosinophils % 1.4 Basophils % 0.2 Nucleated Red Blood 0.0 Cells % Immature Granulocytes 0.020 # Neutrophils # 4.2 Lymphocytes # 1.0 Monocytes # 0.5 Eosinophils # 0.1 Basophils # 0.0 Nucleated Red Blood 0.0 Cells # Sodium Level 143 Potassium Level 4.1 Chloride Level 114 H Carbon Dioxide Level 24 Anion Gap 5 Blood Urea Nitrogen 10 Creatinine 0.67 Est Glomerular > 60 Filtrat Rate mL/min Glucose Level 98 Hemoglobin A1c 5.5 Calcium Level 8.3 L Magnesium Level 1.8 Total Bilirubin 0.2 Direct Bilirubin 0.00 Indirect Bilirubin 0.2 Aspartate Amino 43 # Transf (AST/SGOT) Alanine 29 Aminotransferase (ALT /SGPT) Alkaline Phosphatase 104 Total Protein 5.5 L Albumin 3.1 L Globulin 2.40 Albumin/Globulin 1.29 Ratio Triglycerides Level 147 Cholesterol Level 128 LDL Cholesterol, 63 Calculated HDL Cholesterol 36 Cholesterol/HDL Ratio 3.5 Thyroid Stimulating 1.800 Hormone (TSH) Medications Medication Current Medications IV Flush (NS 3 ml) 3 ml PER PROTOCOL IV ; Start 09/24/18 at 16:30 Ondansetron HCl (Zofran Inj) 4 mg Q6H PRN IV NAUSEA/VOMITING; Start 09/24/18 at 16:30 Famotidine (Pepcid Iv) 20 mg Q12 IV Last administered on 09/25/18at 08:03; Admin Dose 20 MG; Start 09/24/18 at 21:00 Sodium Chloride 1,000 ml @ 100 mls/hr Q10H IV Last administered on 09/25/18at 14:15; Admin Dose 100 MLS/HR; Start 09/25/18 at 04:00 SOCORRO MICHEL Sep 25, 2018 15:21
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
--- NOTE | 2018-09-25 18:19 | CONS ---
Date/Time of Note Date/Time of Note DATE: 09/25/18 TIME: 18:15 Consult Date/Type/Reason Admit Date Sep 24, 2018 at 16:06 Type of Consult Psych Subjective Patient reevaluated for possible overdose. He is disorganized and confused, however he is consistent with his story that he took 8 tablets of unknown dose of Seroquel to help him sleep because he had difficulty sleeping . He however denies suicidal ideation and contracted for safety. Objective Patient Appearance: Appropriate dress, Relaxed Voice Loudness: Moderately Soft/Quiet Mood and Affect Description: Cooperative Mood or Affect: Cooperative Speech Pattern: Clear Thought Process: Disorganized, Tangential Hallucination Type: None Delusion Description: Not Present Assessment/Plan Recommendations Patient does not meet criteria for 5150 hold KIM MALAVE NP Sep 25, 2018 18:19
[2018-09-26] MEDS ORDERED: HALOPERIDOL 5 MG INJ IM ONE (01:00)
[2018-09-26 02:00] VITALS: BP 121/72; PULSE 81; RESP 18
[2018-09-26] MEDS ORDERED: morphine 4 MG/ML VIAL IV ONE (04:35)
[2018-09-26] MEDS ORDERED: HYDROCODONE/APAP (5/325) TAB PO ONE (06:00)
[2018-09-26 07:00] VITALS: BP 135/85; PULSE 90; RESP 18
[2018-09-26] MEDS ORDERED: FAMOTIDINE 20 MG TAB PO SCH (09:00)
--- NOTE | 2018-09-26 09:59 | PDOCDIS ---
Discharge Instructions CONDITION [id number] Patient Condition: [id number] Good HOME CARE INSTRUCTIONS: [id number] Diet Instructions: [id number] Regular ACTIVITY: Propv7Tr Activity Restrictions: Sfpoc2k No Restrictions FOLLOW UP/APPOINTMENTS Follow-up Plan FOLLOW UP WITH YOUR PCP AND PSYCHIATRIST IN 1-2 WEEKS SOCORRO MICHEL Sep 26, 2018 09:59
[2018-09-26] MEDS ORDERED: LORAZEPAM 1 MG TAB PO PRN ×2 (10:00)
--- NOTE | 2018-09-26 12:16 | CONS ---
Date/Time of Note Date/Time of Note DATE: 09/26/18 TIME: 12:14 Consult Date/Type/Reason Admit Date Sep 24, 2018 at 16:06 Type of Consult Psych Subjective Patient was reevaluated again today as a follow-up, he denies suicidal ideation and maintained the purpose of his overdose was to benefit from the sedation of Seroquel because he had problems with sleeping he denies feeling of hopelessness and helplessness, states if he had psychiatric problem he was sick he will but that this moment he only is more concerned with medical issue. Objective Patient Appearance: Appropriate dress Voice Loudness: Normal Mood and Affect Description: Calm Mood or Affect: Cooperative Speech Pattern: Clear Thought Process: Intact Hallucination Type: None Delusion Description: Not Present Assessment/Plan Recommendations Suggest that voluntary psychiatric referral but patient declined, states he does notes need any psychiatric treatment at the moments and that his immediate concern is medical issues. KIM MALAVE NP Sep 26, 2018 12:16
--- NOTE | 2018-09-26 14:58 | DS ---
Date/Time of Note Date/Time of Note DATE: 09/26/18 TIME: 14:54 Discharge Summary Admission/Discharge Info Admit Date/Time Sep 24, 2018 at 16:06 Discharge Date/Time Sep 26, 2018 at 12:55 Discharge Diagnosis 1. Acute toxic encephalopathy secondary to Seroquel overdose -Patient states that he was not trying to hurt himself but forgot that he took his Seroquel and took an additional dose -Patient with prior history of cervical overdose -Patient's urine tox screen is negative for all opiates, benzos or other measurable medications or drugs, alcohol is negative, acetaminophen is negative, salicylates are negative -CT head shows no significant findings Psych consultation appreciated, patient does not require a 5150 hold -Patient is now at baseline 2. History of intentional overdose with Seroquel and Ativan -Patient is well-known to the emergency department -Patient presented similarly a few months prior and left AGAINST MEDICAL ADVICE 3. Anxiety/psychosis -Resume home meds, follow-up with psychiatrist Patient Condition: Good Hospital Course Patient is a 43-year-old male with history of anxiety and psychosis who is on Seroquel and does follow-up with a psychiatrist. She presents with acute toxic encephalopathy secondary to Seroquel overdose, patient has had a previous episode of Seroquel overdose in the past and he reports that is not trying to hurt himself but rather that he forgets he has taken his pill and doubles up. Patient was seen by psychiatry and did not meet requirements for hold, patient was stable for DC and on the discharge patient's vitals, labs and physical exam are stable. Home Meds Reported Medications Zolpidem Tartrate* (Zolpidem Tartrate*) 10 Mg Tablet, 10 MG PO QHS PRN for INSOMNIA, #30 TAB 09/24/18 Lorazepam* (Ativan*) 2 Mg Tablet, 2 MG PO HS PRN for ANXIETY, #30 TAB 09/24/18 Esomeprazole Mag Trihydrate (Nexium) 40 Mg Capsule.dr, 40 MG PO DAILY, #30 CAP 09/24/18 Quetiapine Fumarate* (Quetiapine Fumarate*) 300 Mg Tablet, 300 MG PO BID, TAB 09/24/18 Ibuprofen* (Ibuprofen*) 800 Mg Tab, 800 MG PO NEEDED PRN for PAIN, TAB 09/24/18 Metoprolol Tartrate* (Lopressor*) 100 Mg Tablet, 200 MG PO BID, #120 TAB 09/24/18 Clonidine Hcl* (Clonidine Hcl*) 0.2 Mg Tablet, 0.2 MG PO QHS, TAB 09/24/18 Discontinued Reported Medications Iktmog-Ytjghxed-Fidxcbu* (Inder BROWN* 6,000) 6,000 L-19,000-30,000 Unit Capsule.d r, 1 CAP PO WITH MEALS, CAP 05/29/18 Lorazepam* (Lorazepam*) 1 Mg Tablet, 2 MG PO DAILY PRN for ANXIETY, #30 TAB 05/29/18 Clonidine Hcl* (Clonidine Hcl*) 0.2 Mg Tablet, 0.2 MG PO QHS, TAB 05/29/18 Esomeprazole Mag Trihydrate (Nexium) 40 Mg Capsule.dr, 40 MG PO AC BREAKFAST, #30 CAP 05/29/18 Zolpidem Tartrate* (Zolpidem Tartrate*) 10 Mg Tablet, 10 MG PO QHS PRN for INSOMNIA, #30 TAB 05/29/18 Ibuprofen* (Ibuprofen*) 800 Mg Tab, 800 MG PO Q6H PRN for PAIN, TAB 05/29/18 Quetiapine Fumarate* (Seroquel*) 300 Mg Tablet, 300 MG PO BID, TAB 05/29/18 Metoprolol Tartrate* (Lopressor*) 100 Mg Tablet, 200 MG PO BID, #120 TAB 05/29/18 Discontinued Scripts Famotidine* (Pepcid*) 20 Mg Tablet, 20 MG PO BID for 4 Days, #30 TAB Prov:SHANNAN MCKEON-C 08/06/18 Tramadol HCl (Tramadol HCl) 50 Mg Tablet, 50 MG PO Q4 PRN for PAIN, #7 TAB Prov:SHANNAN MCKEON-C 08/06/18 Ondansetron (Ondansetron Odt) 4 Mg Tab.rapdis, 4 MG PO Q6H PRN for NAUSEA AND/OR VOMITING, #10 TAB Prov:SHANNAN MCKEON-C 08/06/18 Loratadine* (Claritin*) 5 Mg Tab.rapdis, 5 MG PO DAILY, #10 TAB Prov:ORLY BALDERRAMA-C 07/25/18 Ondansetron (Ondansetron Odt) 4 Mg Tab.rapdis, 4 MG PO Q6H PRN for NAUSEA AND/OR VOMITING, #10 TAB Prov:YAKELIN CALERO PA-C 07/15/18 Benzonatate* (Tessalon Perle*) 100 Mg Capsule, 100 MG PO Q8H PRN for COUGH, #20 CAP Prov:YAKELIN CALERO PA-C 07/15/18 Azithromycin* (Zithromax*) 250 Mg Tablet, 250 MG PO .NAECK DIRECTED, #6 TAB TAKE 500 MG (2 TABS) THE FIRST DAY THEN 250 MG (1 TAB) DAYS 2-5 Prov:YAKELIN CALERO PA-C 07/15/18 Follow-up Plan FOLLOW UP WITH YOUR PCP AND PSYCHIATRIST IN 1-2 WEEKS Primary Care Provider Not On Staff Doctor Time spent on discharge: > 30 minutes SOCORRO MICEHL Sep 26, 2018 14:58
== END 2018-09-26 12:55 | disposition home or self-care (01) | DRG 917 ==
LOC: E/R 14:29 → ICU 16:06 → 5EC 09-25 12:43
PROVIDERS: ADMIT Internal Medicine; ATTEND Internal Medicine
DX: T43.591A Poisoning by other antipsychotics and neuroleptics, accidental (unintentional), initial encounter (principal); G92 Toxic encephalopathy; F41.9 Anxiety disorder, unspecified; F29 Unspecified psychosis not due to a substance or known physiological condition
CPT/HCPCS: 36600; 70450; 71045; 80053; 80061; 80307; 81003; 82803; 83036; 83735; 84443; 85025; 87081; 93005; 96360; J1630; J2060; J2270; J7030

== ENCOUNTER 2019-01-21 00:49 | Inpatient (IN) | payer MEDICARE, BC ==
[~2019-01-21] VITALS: Ht 167.6 cm; Wt 80.0 kg
[~2019-01-21 00:49] MED LIST changes: -AZIT250T PO; -BENZ-6 PO; -FAMO-96 PO; -LIPA1CAP2 PO; +LORA-444 PO; -LORA1TAB PO; -LORA5TAB4 PO; -ONDA4TAB14 PO; +QUET300T18 PO; -QUET300T2 PO; +QUET400T11 PO; -TRAM50TA2 PO
[2019-01-21] MEDS ORDERED: SOD CHLORIDE 0.9% 1,000 ML IV STA (00:52)
[2019-01-21] MEDS ORDERED: NA BICARBONATE 8.4% 50 ML SYG IV ONE (01:00)
[2019-01-21] MEDS ORDERED: ONDANSETRON 4 MG INJ IV PRN ×2 (04:00→05:30)
[2019-01-21] MEDS ORDERED: ACETAMINOPHEN 325 MG TAB PO PRN ×2 (04:00→05:30)
[2019-01-21] MEDS ORDERED: DOCUSATE SODIUM 100 MG CAP PO PRN (05:30)
[2019-01-21] MEDS ORDERED: NACL 0.9% 3 ML SYG IV SCH (05:30)
[2019-01-21] MEDS ORDERED: BISACODYL (EC) 5 MG TAB PO PRN (05:30)
[2019-01-21 05:38] VITALS: Ht 167.6 cm; Wt 80.0 kg
[2019-01-21 05:50] VITALS: BP 130/82; PULSE 67
[2019-01-21 07:49] VITALS: BP 136/89; PULSE 71; RESP 19
[2019-01-21] MEDS: ENOXAPARIN 40 MG/0.4 ML SYG SC SCH (09:00)
[2019-01-21] MEDS ORDERED: LORAZEPAM 2 MG INJ IV PRN (12:30)
[2019-01-21 12:49] VITALS: BP 162/100; PULSE 63; RESP 18
[2019-01-21 15:31] VITALS: BP 110/75; PULSE 75; RESP 20
[2019-01-21] MEDS ORDERED: LORAZEPAM 2 MG INJ ONE (16:27)
[2019-01-21] MEDS: LORAZEPAM 2 MG INJ IV PRN (17:22)
[2019-01-21 19:14] VITALS: BP 119/79; PULSE 69; RESP 20
[2019-01-22 00:05] VITALS: BP 115/70; PULSE 62; RESP 20
[2019-01-22 04:00] VITALS: BP 129/78; PULSE 71; RESP 20
[2019-01-22] MEDS: LORAZEPAM 2 MG INJ IV PRN ×2 (04:14→11:30)
[2019-01-22 07:30] VITALS: BP 139/91; PULSE 68; RESP 17
[2019-01-22] MEDS: ENOXAPARIN 40 MG/0.4 ML SYG SC SCH (10:56)
[2019-01-22 11:59] VITALS: BP 137/85; PULSE 58; RESP 18
[2019-01-22 15:15] VITALS: BP 136/88; PULSE 76; RESP 18
[2019-01-22] MEDS ORDERED: LORAZEPAM 2 MG INJ IV ONE (16:30)
== END 2019-01-22 18:15 | disposition left against medical advice (07) | DRG 918 ==
LOC: E/R 00:49 → 6WM 03:36 → CANRESERV 04:51 → 6WM 05:26
PROVIDERS: ADMIT Family Medicine; ATTEND Family Medicine
DX: T50.902A Poisoning by unspecified drugs, medicaments and biological substances, intentional self-harm, initial encounter (principal); F84.5 Asperger's syndrome; F33.9 Major depressive disorder, recurrent, unspecified; Z72.0 Tobacco use; F41.1 Generalized anxiety disorder
CPT/HCPCS: 36415; 80053; 80307; 81003; 82607; 82746; 83735; 84100; 84443; 85025; 85610; 93005; 96374; J1650; J2060; J7030